=== PATIENT | female | born 1950 | race Caucasian/White ===

== ENCOUNTER 2024-07-06 13:47 | Emergency (ER) | payer MEDICARE, SELFPAY ==
--- NOTE | 2024-07-06 13:53 | ED_ITS ---
Discharge Plan Disposition Patient Disposition: Home, Self-Care Condition: Good Referrals Follow up/Referrals: Provider,Referral, MD [Primary Care Provider] - See instructions Activity Restrictions/Add. Instructions Additional Instructions/Restrictions: Please continue taking Tylenol alternating with Motrin for your chest wall pain. If you have continued new or worsening signs or symptoms follow-up with your PCP or return to the ER as needed. You also need to follow-up with your PCP for lung nodules. Please schedule that appointment tomorrow. Clinical Impressions Clinical Impression: Chest wall pain, Lung nodule Fall Qualifiers: Encounter type: initial encounter Qualified Code(s): W19.XXXA - Unspecified fall, initial encounter Instructions Patient Instructions: Exercises to Help Prevent Falls Print Language Print Language: Kiswahili Discharge ED Provider: Harvinder Cash General Adult HPI <WARREN Mitchell - Last Filed: 07/06/24 15:47> General Chief complaint: PAIN Stated complaint: fall rib pain Time Seen by Provider: 07/06/24 13:53 History of Present Illness HPI narrative: Patient presents for evaluation of right chest wall pain. Patient states that she tripped and fell landing on her right side. She believes she landed on a dog toy. Initially she did not have pain but as the day is gone on she has began hurting more more in her right lateral chest wall. She denies any difficulty breathing fever chills hemoptysis hematochezia melena loss of consciousness striking her head etc. She denies any other injury or pain. Related Data Allergies Allergy/AdvReac Type Severity Reaction Status Date / Time Penicillins Allergy Unknown Verified 07/06/24 14:12 allergy reaction [facility] <WARREN Mitchell - Last Filed: 07/06/24 15:47> [facility] Disclaimer: The information contained in this section may have been updated after the patient was seen, as this information can be updated by other users. Social History (Updated 07/06/24 @ 15:47 by WARREN Mitchell) Smoking Status: Former smoker alcohol intake: never current occupational status: retired Travel in the last 8 weeks: None Have you lived/traveled outside US in past 30 days?: No Contact w/someone who lives/traveled outside US past 30 days?: No Exposure to someone with infectious disease in past 14 days?: No Do you have a fever (greater than 100.4 F or 38 C)?: No Have you tested positive for COVID-19: No Exposed to someone with COVID-19 in past 14 days?: No Do you have a sore throat?: No Do you have a cough?: No Do you have any weakness?: No Do you have any diarrhea?: No Are you experiencing any unusual bleeding?: No Do you have any muscle aches/pain?: No Do you have any abdominal pain?: No Are you experiencing loss of taste or smell?: No <WARREN Mitchell - Last Filed: 07/06/24 15:47> ROS Obtained: Yes Systems reviewed as appropriate & no additional complaints except as documented Physical Exam <WARREN Mitchell - Last Filed: 07/06/24 15:47> General General appearance: alert and in no apparent distress Respiratory Respiratory exam: Present normal lung sounds bilaterally Cardiovascular Cardiovascular exam: Present regular rate Neurological Exam Neurological exam: Present alert and oriented X3 Medical Decision Making <WARREN Mitchell - Last Filed: 07/06/24 15:47> Medical Records Medical records reviewed: Yes I reviewed the patient's medical records. Screening: Per USPSTF and CDC recommendations, given the prevalence of disease in our region, it is our hospital?s policy to screen for HIV and viral Hepatitis for all patients aged 18 and over and those with ongoing risk factors. [place] Inquiry Pt receiving controlled substance: No Vital Signs: 07/06/24 13:56 07/06/24 14:00 07/06/24 14:00 Temperature 100.2 F H Temperature Source Oral Pulse Rate 105 H 107 H Pulse Rate [Left Radial] 104 H Respiratory Rate 19 15 27 H Blood Pressure 127/77 139/88 Blood Pressure [Right Arm] 163/98 H Blood Pressure Mean Blood Pressure Mean [Right Arm] 119 Blood Pressure Source Blood Pressure Position 02 Sat by Pulse Oximetry 97 96 96 Oxygen Delivery Method Room Air Nasal Cannula Room Air Oxygen Flow Rate (LPM) 2 07/06/24 14:30 07/06/24 15:00 07/06/24 15:30 Temperature Temperature Source Pulse Rate 98 H 85 85 Pulse Rate [Left Radial] Respiratory Rate 24 16 Blood Pressure 133/82 141/67 H 137/73 Blood Pressure [Right Arm] Blood Pressure Mean 91 Blood Pressure Mean [Right Arm] Blood Pressure Source Blood Pressure Position 02 Sat by Pulse Oximetry 95 96 96 Oxygen Delivery Method Room Air Room Air Room Air Oxygen Flow Rate (LPM) 07/06/24 16:01 Temperature 98.5 F Temperature Source Oral Pulse Rate 89 Pulse Rate [Left Radial] Respiratory Rate 20 Blood Pressure 137/73 Blood Pressure [Right Arm] Blood Pressure Mean Blood Pressure Mean [Right Arm] Blood Pressure Source Automatic Cuff Blood Pressure Position Sitting 02 Sat by Pulse Oximetry Oxygen Delivery Method Room Air Oxygen Flow Rate (LPM) Lab Data Lab results reviewed: Yes I reviewed the patient's lab results. Orders (Tests/Meds): ED MEDICATIONS Discontinued Medications Generic Name Dose Route Start Last Admin Trade Name Freq PRN Reason Stop Dose Admin Acetaminophen 1,000 mg 07/06/24 14:27 07/06/24 14:32 Acetaminophen 500mg Tab PO 07/06/24 14:28 1,000 mg ONCE ONE Administration Oxycodone HCl 5 mg 07/06/24 14:27 07/06/24 14:32 Oxycodone 5mg Immediate Release Tablet PO 07/06/24 14:28 5 mg ONCE ONE Administration ORDERS Category Date Time Status CT cervical spine wo con Stat Cat Scan 07/06/24 14:[address] chest wo con Stat Cat Scan 07/06/24 14:[address] head/brain wo con Stat Cat Scan 07/06/24 14:26 Completed Medical Decision Narrative: In summary patient is a 73-year-old female who presents to the emergency department for evaluation of fall and right chest wall pain. Patient is hemodynamically stable upon arrival, febrile. Physical exam is remarkable for tenderness to palpation in the right anterior lateral ribs but there is no stigmata of bruising bony deformity abrasions ecchymosis. Breath sounds are cur rently equal bilaterally to the bases. Patient has good chest wall expansion. She has no cervical spine tenderness she has no dorsal spine tenderness [place] Coma Score is 15 and she is awake alert and oriented person place and circumstance. Abdomen soft nontender no rebound or guarding or rigidity. Patient has full range of motion of her lower extremities with no focal neurologic deficits.. Differential diagnosis includes chest wall contusion versus rib fracture. Initial workup will be conducted with CT scan of the head C-spine chest. Initial interventions include Tylenol oxycodone. Initial workup reviewed by me and my interpretation of her imaging shows no evidence of acute fracture or acute intrathoracic abnormality. Patient does have bilateral nodularity in her lungs the radiologist recommend follow-up for as an outpatient.. Upon repeat evaluation patient reported significant improvement after initial interventions. Given this patient is appropriate for discharge with follow-up with her PCP for her lung findings as well as for any continued new or worsening signs or symptoms as needed. <Harvinder Cash MD - Last Filed: 07/07/24 12:25> Vital Signs: 07/06/24 13:56 07/06/24 14:00 07/06/24 14:00 Temperature 100.2 F H Temperature Source Oral Pulse Rate 105 H 107 H Pulse Rate [Left Radial] 104 H Respiratory Rate 19 15 27 H Blood Pressure 127/77 139/88 Blood Pressure [Right Arm] 163/98 H Blood Pressure Mean Blood Pressure Mean [Right Arm] 119 Blood Pressure Source Blood Pressure Position 02 Sat by Pulse Oximetry 97 96 96 Oxygen Delivery Method Room Air Nasal Cannula Room Air Oxygen Flow Rate (LPM) 2 07/06/24 14:30 07/06/24 15:00 07/06/24 15:30 Temperature Temperature Source Pulse Rate 98 H 85 85 Pulse Rate [Left Radial] Respiratory Rate 24 16 Blood Pressure 133/82 141/67 H 137/73 Blood Pressure [Right Arm] Blood Pressure Mean 91 Blood Pressure Mean [Right Arm] Blood Pressure Source Blood Pressure Position 02 Sat by Pulse Oximetry 95 96 96 Oxygen Delivery Method Room Air Room Air Room Air Oxygen Flow Rate (LPM) 07/06/24 16:01 Temperature 98.5 F Temperature Source Oral Pulse Rate 89 Pulse Rate [Left Radial] Respiratory Rate 20 Blood Pressure 137/73 Blood Pressure [Right Arm] Blood Pressure Mean Blood Pressure Mean [Right Arm] Blood Pressure Source Automatic Cuff Blood Pressure Position Sitting 02 Sat by Pulse Oximetry Oxygen Delivery Method Room Air Oxygen Flow Rate (LPM) Orders (Tests/Meds): ED MEDICATIONS Discontinued Medications Generic Name Dose Route Start Last Admin Trade Name Freq PRN Reason Stop Dose Admin Acetaminophen 1,000 mg 07/06/24 14:27 07/06/24 14:32 Acetaminophen 500mg Tab PO 07/06/24 14:28 1,000 mg ONCE ONE Administration Oxycodone HCl 5 mg 07/06/24 14:27 07/06/24 14:32 Oxycodone 5mg Immediate Release Tablet PO 07/06/24 14:28 5 mg ONCE ONE Administration ORDERS Category Date Time Status CT cervical spine wo con Stat Cat Scan 07/06/24 14:[address] chest wo con Stat Cat Scan 07/06/24 14:[address] head/brain wo con Stat Cat Scan 07/06/24 14:26 Completed Medical Decision Narrative: In summary patient is a 73-year-old female who presents to the emergency department for evaluation of fall and right chest wall pain. Patient is hemodynamically stable upon arrival, febrile. Physical exam is remarkable for tenderness to palpation in the right anterior lateral ribs but there is no stigmata of bruising bony deformity abrasions ecchymosis. Breath sounds are currently equal bilaterally to the bases. Patient has good chest wall expansion. She has no cervical spine tenderness she has no dorsal spine tenderness [place] [facility] Coma Score is 15 and she is awake alert and oriented person place and circumstance. Abdomen soft nontender no rebound or guarding or rigidity. Patient has full range of motion of her lower extremities with no focal neurologic deficits.. Differential diagnosis includes chest wall contusion versus rib fracture. Initial workup will be conducted with CT scan of the head C-spine chest. Initial interventions include Tylenol oxycodone. Initial workup reviewed by me and my interpretation of her imaging shows no evidence of acute fracture or acute intrathoracic abnormality. Patient does have bilateral nodularity in her lungs the radiologist recommend follow-up for as an outpatient.. Upon repeat evaluation patient reported significant improvement after initial interventions. Given this patient is appropriate for discharge with follow-up with her PCP for her lung findings as well as for any continued new or worsening signs or symptoms as needed. I was consulted by the OTTO, and we discussed the complexity of the problems being addressed. I approve the treatment and management plan for this patient's care in the emergency department, thus performing a substantive portion of the medical decision making. Harvinder Cash MD Critical Care <WARREN Mitchell - Last Filed: 07/06/24 15:47> Critical Care Time Critical Care Time: No
[2024-07-06 13:56] VITALS: BP 127/77; PULSE 105; RESP 19; O2SAT 97
[2024-07-06 14:00] VITALS: BP 139/88; BP 163/98; PULSE 104; PULSE 107; RESP 15; RESP 27; TEMP 37.9; O2SAT 96; BMI 32.5
--- NOTE | 2024-07-06 14:08 | PC.NURSE ---
[facility] pool at [facility] talking with pt
--- NOTE | 2024-07-06 14:26 | CT_ITS ---
FINAL REPORT TECHNIQUE: Noncontrast exam This study was performed with techniques to keep radiation doses as low as reasonably achievable, (ALARA). Individualized dose reduction techniques using automated exposure control or adjustment of mA and/or kV according to the patient''s size were employed. CLINICAL HISTORY: Fall FINDINGS: No abnormal density is seen. Ventricles are normal. There is no hemorrhage. No mass effect is seen. Bone windows show no evidence of fracture. 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 There is moderate generalized atrophy. Incidental note is made of pansinusitis with sparing of the frontal sinus. IMPRESSION: No acute intracranial abnormality. Pansinusitis. Reviewed, Interpreted and Dictated by Katherine Teixeria MD Transcribed by Anais Chand Authenticated and [facility]
--- NOTE | 2024-07-06 14:26 | CT_ITS ---
FINAL REPORT TECHNIQUE: Axial CT without IV contrast administration. This study was performed with techniques to keep radiation doses as low as reasonably achievable, (ALARA). Individualized dose reduction techniques using automated exposure control or adjustment of mA and/or kV according to the patient''s size were employed. CLINICAL HISTORY: Fall, right chest wall pain FINDINGS: There is nodular at the right lung base, most evident within the right middle lobe. Largest area seen on image 47 measures 22 x 14 mm. There are patchy peripheral opacities in the right lung and to a lesser extent in the left lung. There is no evidence of pulmonary contusion. There is no adenopathy or effusion. A moderate size hiatal hernia seen. There is no pneumothorax. No rib fracture is identified. IMPRESSION: Abnormal appearance of the lung parenchyma, particularly in the right lung with nodularity which could be infectious or inflammatory. Recommend 3-month follow-up chest CT, ideally with intravenous contrast. No evidence of pulmonary contusion. Reviewed, Interpreted and Dictated by Katherine Teixeira MD Transcribed by Anais Chand Authenticated and [facility]
--- NOTE | 2024-07-06 14:26 | CT_ITS ---
FINAL REPORT TECHNIQUE: Thin section axial CT with sagittal reconstruction without contrast This study was performed with techniques to keep radiation doses as low as reasonably achievable, (ALARA). Individualized dose reduction techniques using automated exposure control or adjustment of mA and/or kV according to the patient''s size were employed. CLINICAL HISTORY: Fall FINDINGS: There is moderate diffuse degenerative disc disease and facet arthropathy. There is no acute bony abnormality. No obvious bony spinal canal stenosis is present. No gross disk abnormalities are seen. IMPRESSION: No fracture or malalignment Reviewed, Interpreted and Dictated by Katherine Teixeira MD Transcribed by Anais Chand Authenticated and [facility]
[2024-07-06 14:30] VITALS: BP 133/82; PULSE 98; RESP 24; O2SAT 95
--- NOTE | 2024-07-06 14:31 | PC.NURSE ---
pt to CT via stretcher with [employer].
[2024-07-06] MEDS: ACETAMINOPHEN 500MG TAB 1000 MG PO (14:32)
[2024-07-06] MEDS: OXYCODONE 5MG IMMEDIATE RELEASE TABLET 5 MG PO (14:32)
--- NOTE | 2024-07-06 14:46 | PC.NURSE ---
pt returned from CT
[2024-07-06 15:00] VITALS: BP 141/67; PULSE 85; O2SAT 96
[2024-07-06 15:30] VITALS: BP 137/73; PULSE 85; RESP 16; O2SAT 96
[2024-07-06 16:01] VITALS: BP 137/73; PULSE 89; RESP 20; TEMP 36.9
--- NOTE | 2024-07-09 11:24 | PC.NURSE ---
Faxed face-sheet to [facility]
== END 2024-07-06 16:03 | disposition home or self-care (01) ==
PROVIDERS: Emergency Provider Student in an Organized Health Care Education/Training Program
DX: R07.89 Other chest pain (principal); R91.1 Solitary pulmonary nodule; W18.30XA Fall on same level, unspecified, initial encounter; Y93.89 Activity, other specified; Y92.009 Unspecified place in unspecified non-institutional (private) residence as the place of occurrence of the external cause
CPT/HCPCS: 70450; 71250; 72125; 99284

== ENCOUNTER 2025-03-04 04:24 | Inpatient (IN) | payer MEDICARE, SELFPAY ==
[2025-03-04] VITALS (16 sets, daily range): BP systolic 106–179; BP diastolic 58–100; PULSE 77–110; RESP 12–21; TEMP 36.6–37.7; O2SAT 86–99; BMI 32.1; BMI 35.4
--- NOTE | 2025-03-04 04:28 | [facility].EDGENADL ---
Discharge Plan Disposition Patient Disposition: Admitted Clinical Impressions Clinical Impression: Community acquired pneumonia, Acute exacerbation of chronic obstructive airways disease, Respiratory failure with hypoxia and hypercapnia Print Language Print Language: Maltese Discharge ED Provider: London Reinoso General Adult HPI General Chief complaint: Shortness of Breath/Dyspnea Stated complaint: Respiratory Distress Time Seen by Provider: 03/04/25 04:28 History of Present Illness HPI narrative: 75-year-old female with history of hypertension, prior [place], COPD, on 3 L at home intermittently as needed. She reports that she has been feeling well and that all the sudden was hit with significant shortness of breath. EMS reports that she was satting in the 60s and was borderline obtunded on their arrival. She was placed on a nonrebreather and given a DuoNeb with improvement. She arrives on 6 L nasal cannula and is still a bit groggy. Related Data Allergies Allergy/AdvReac Type Severity Reaction Status Date / Time Penicillins Allergy Unknown Verified 07/06/24 14:12 [facility] Disclaimer: The information contained in this section may have been updated after the patient was seen, as this information can be updated by other users. Social History (Updated 07/06/24 @ 15:47 by WARREN Mitchell) Smoking Status: Never smoker alcohol intake: never current occupational status: retired Travel in the last 8 weeks?: None ROS Obtained: Yes All systems reviewed & no additional complaints except as documented Physical Exam General General appearance: alert Head Head exam: atraumatic and normocephalic Eye Eye exam: Present normal appearance, PERRL and EOMI ENT ENT exam: Present normal oropharynx and normal external ear exam Neck Neck exam: Present normal inspection and full ROM Chest Chest inspection: Present normal inspection and symmetric chest wall rise; Absent tenderness Respiratory Respiratory exam: Present respiratory distress, wheezes and prolonged expiratory phase Cardiovascular Cardiovascular exam: Present normal rhythm and tachycardia Abdominal Exam Abdominal exam: Present soft; Absent distention, tenderness or guarding Extremities Exam Extremities exam: Present normal inspection; Absent edema or joint swelling Back Exam Back exam: Present normal inspection; Absent tenderness Neurological Exam Neurological exam: Present alert and oriented X3; Absent motor sensory deficit Psychiatric Psychiatric exam: Present normal affect and normal mood Skin Skin exam: Present warm, dry and normal color Lymphatic Lymphatic Findings: no adenopathy Medical Decision Making Medical Records Medical records reviewed: Yes I reviewed the patient's medical records. Screening: Per USPSTF and CDC recommendations, given the prevalence of disease in our region, it is our hospital?s policy to screen for HIV and viral Hepatitis for all patients aged 18 and over and those with ongoing risk factors. [place] Inquiry Pt receiving controlled substance: No [place] was queried for this patient: No Vital Signs: 03/04/25 04:30 03/04/25 05:00 03/04/25 05:30 Temperature 99.9 F H Temperature Source Oral Pulse Rate 99 H 101 H Pulse Rate [Radial] 110 H Respiratory Rate 20 17 17 Blood Pressure 131/71 141/78 H Blood Pressure [Right Arm] 136/73 Blood Pressure Mean [Right Arm] 94 Blood Pressure Position [Right Arm] Supine 02 Sat by Pulse Oximetry 98 99 94 L Oxygen Delivery Method Nasal Cannula Nasal Cannula Nasal Cannula Oxygen Flow Rate (LPM) 6 6 3 03/04/25 06:00 03/04/25 06:10 Temperature Temperature Source Pulse Rate 91 H Pulse Rate [Radial] Respiratory Rate 16 Blood Pressure 106/58 L Blood Pressure [Right Arm] Blood Pressure Mean [Right Arm] Blood Pressure Position [Right Arm] 02 Sat by Pulse Oximetry 94 L 87 L Oxygen Delivery Method Nasal Cannula Nasal Cannula Oxygen Flow Rate (LPM) 2 1 Lab Data Lab results reviewed: Yes I reviewed the patient's lab results. Lab Results 03/04/25 04:30: WBC 22.4 H*, RBC 4.09 L, Hgb 9.3 L, Hct 33.5 L, MCV 81.9, MCH 22.7 L, MCHC 27.8 L, RDW 18.5 H, Plt Count 246, MPV 8.7, Neut % (Auto) 85.4 H, Lymph % (Auto) 1.5 L, [place] % (Auto) 10.9 H, Eos % (Auto) 0.2, Baso % (Auto) 0.4, Neut # (Auto) 19.1 H, Lymph # (Auto) 0.3 L, [place] # (Auto) 2.4 H, Eos # (Auto) 0.1, Baso # (Auto) 0.1, Total Counted 100, Neutrophils % (Manual) 91 H, Lymphocytes % (Manual) 7 L, Eosinophils % (Manual) 1, Basophils % (Manual) 1.0, Platelet Estimate Normal, Stomatocytes 1+, PT 11.1, INR 1.00, VBG pH 7.32, VBG pCO2 61.9 H, VBG pO2 62.9 H, VBG HCO3 31.1 H, VBG Total CO2 33.0 H, VBG O2 Saturation 91.8 H, VBG Base Excess 5.0 H, VBG Lactic Acid 1.8, Sodium 134 L, Potassium 4.1, Chloride 98, Carbon Dioxide 34 H, Anion Gap 6.1, BUN 15, Creatinine 1.00, Estimated Creat Clear 61, Estimated GFR 54 L, Est GFR ( Amer) 66, Glucose 127 H, Calcium 8.4, Magnesium 1.6, Total Bilirubin 1.0, AST 39 H, ALT 16, Alkaline Phosphatase 90, Troponin I < 0.01, NT-Pro-B Natriuret Pep 3160 H, Total Protein 6.3, Albumin 3.4 L, Globulin 2.9, Albumin/Globulin Ratio 1.2, HCV Ab NANCY w/Rflx PCR Qn Negative, HIV Ag/Ab Combo Qual Negative 03/04/25 04:30 03/04/25 04:30 Orders (Tests/Meds): ED MEDICATIONS Generic Name Dose Route Start Last Admin Trade Name Freq PRN Reason Stop Dose Admin Levofloxacin/Dextrose 750 mg in 150 mls @ 100 mls/hr 03/04/25 05:30 03/04/25 05:21 Levofloxacin 750mg/150ml Premix IV 03/14/25 05:29 100 mls/hr Q24H TYLER Administration Oxycodone HCl 5 mg 03/04/25 06:29 Oxycodone 5mg Immediate Release Tablet PO 03/04/25 06:30 ONCE ONE Discontinued Medications Generic Name Dose Route Start Last Admin Trade Name Freq PRN Reason Stop Dose Admin Albuterol/Ipratropium 6 ml 03/04/25 04:28 03/04/25 04:46 Ipratropium/Albuterol 3 Ml Neb IH 03/04/25 04:29 6 ml ONCE ONE Administration Magnesium Sulfate 2 gm in 50 mls @ 150 mls/hr 03/04/25 04:28 03/04/25 05:12 Magnesium Sulfate 2gm/50ml Premix IV 03/04/25 04:47 Infused ONCE ONE Infusion Methylprednisolone Sodium Succinate 125 mg 03/04/25 04:28 03/04/25 04:48 Methylprednisolone Sod Succ 125mg Vial IV 03/04/25 04:29 125 mg ONCE ONE Administration ORDERS Category Date Time Status CXR --portable [XR chest portable] Stat Exams 03/04/25 04:29 Completed BNP [NT Pro Brain Natriuretic Pep.] Stat Lab 03/04/25 04:30 Completed CBC w/Auto Diff [Complete Blood Count Auto Diff] Stat Lab 03/04/25 04:30 Completed CMP [Comprehensive Metabolic Panel] Stat Lab 03/04/25 04:30 Completed Full Resp Panel w/COVID ([facility]) Routine Lab 03/04/25 04:45 Received HIV Combo Stat Lab 03/04/25 04:30 Completed Hepatitis C Ab Qual. W/ RFX Stat Lab 03/04/25 04:30 Completed INR [Prothrombin Time INR] Stat Lab 03/04/25 04:30 Completed Magnesium Stat Lab 03/04/25 04:30 Completed Rapid PCR Covid and Flu A/B Stat Lab 03/04/25 04:45 Ordered Troponin I Q3H Lab 03/04/25 04:30 Completed Troponin I Q3H Lab 03/04/25 07:30 Ordered Blood Culture Stat Micro 03/04/25 05:05 Received VBG [Venous Blood Gas] Stat RT 03/04/25 04:30 Completed Tissue Perfus/Sepsis Re-Eval Sepsis Re-Evaluation Performed: Yes Date Performed: 03/04/25 Time Performed: 06:33 HEART Score History (anamnesis): Slightly suspicious ECG: Normal Age: >65 years Risk factors: Atherosclerosis history Troponin: </= normal limit HEART Score: 4 Medical Decision Narrative: 74-year-old female with history of COPD on 3 L nasal cannula at home intermittently. History was obtained via interactive discussion with patient, EMS, chart review. On arrival, patient is afebrile but temp 99.9, normotensive, satting mid 90s on 6 L nasal cannula, moving all extremities spontaneously. Full physical exam performed and significant for poor air movement bilaterally with wheezing, prolonged expiratory phase and accessory muscle use. no significant lower extremity edema. Differential includes but is not limited to COPD exacerbation, pneumonia, URI, pneumothorax. Patient was given 1 DuoNeb by EMS, 2 DuoNebs here, 125 Solu-Medrol, 2 g mag, Levaquin for symptomatic management and correction of underlying abnormalities. Workup initiated including CBC CMP VBG EKG troponin chest x-ray. On re-evaluation, patient reports significant symptomatic improvement, satting low 90s on 3 L nasal cannula Laboratory workup independently interpreted by me and significant for low normal pH and mildly elevated pCO2 on VBG. White count moderately elevated at 22.. Imaging independently interpreted by me and significant for possible right infiltrate and pulmonary edema see radiology read for full review of final results. EKG independently interpreted by me and significant for normal sinus rhythm, rate of 99, no significant ST or T wave changes. Interpreted at 0453. Given patient history, exam and workup, patient's presentation most likely represents pneumonia and COPD exacerbation. She was initiated on Levaquin for empiric treatment of pneumonia. We tried to wean her off her oxygen but she dropped into the 80s. Full sepsis bolus is not indicated at this time given concern for pulmonary edema. Interactive discussion was had with the hospitalist on-call for admission for pneumonia acute exacerbation and respiratory failure. Procedures Risk/Benefits of Procedure(s) Were Explained: Yes Critical Care Critical Care Time Critical Care Time: Yes Attestation: On 03/04/25, the high probability of a clinically significant, sudden or life threatening deterioration of the following system(s) required my full and direct attention, intervention and personal management. The time I documented below is in addition to time spent performing reported procedures but includes the following listed in this critical care notation. Total Time Total Critical Care Time: 50
--- NOTE | 2025-03-04 04:29 | XR_ITS ---
PROCEDURE INFORMATION: Exam: XR Chest Exam date and time: 03/04/2025 4:33 AM Age: 74 years old Clinical indication: Shortness of breath; Additional info: Copd, SOA TECHNIQUE: Imaging protocol: Radiologic exam of the chest. Views: 1 view. COMPARISON: CT CHEST WO CON 07/06/2024 2:43 PM FINDINGS: Lungs: Right basilar airspace opacity, atelectasis versus aspiration or infiltrate. Pleural spaces: Unremarkable. No pleural effusion. No pneumothorax. Heart/Mediastinum: Stable cardiomegaly. Bones/joints: Unremarkable. IMPRESSION: Stable cardiomegaly. Right basilar airspace opacity, atelectasis versus aspiration or infiltrate.
[2025-03-04 04:39] LABS: Hematocrit 33.5 % (37.0-47.0); Hemoglobin 9.3 g/dL (12.2-16.2); Immature Granulocytes % 1.6 %; Lactate Venous 1.8 mmol/L (0.4-2.0); Mean Corpuscular HGB Conc 27.8 g/dL (31.8-35.4); Mean Corpuscular Hemoglobin 22.7 pg (27.0-31.2); Mean Corpuscular Volume 81.9 fl (81-99); Nucleated Red Blood Cells % 0 %; Platelet Count 246 K/mm3 (142-424); Red Blood Count 4.09 M/mm3 (4.20-5.40); Red Cell Distribution Width-SD 55.4 fL; VBG HCO3 31.1 mmol/L (23-30); VBG PH 7.32 mmol/L (7.31-7.41); VBG PO2 62.9 mmol/L (28-40); White Blood Count 22.4 K/mm3 (4.8-10.8)
[2025-03-04 04:42] LABS: VBG PCO2 61.9 mmol/L (35-51)
[2025-03-04 04:46] LABS: Albumin Level 3.4 g/dl (3.5-5.0); Chloride 98 mmol/L (98-107); Potassium 4.1 mmoL/L (3.5-5.1); Sodium 134 mmol/L (136-145)
[2025-03-04] MEDS: IPRATROPIUM/ALBUTEROL 3 ML NEB 6 ML IH (04:46)
[2025-03-04] MEDS: MAGNESIUM SULFATE IN WATER 2 GM/50 ML PIGGYBACK IV (04:47)
[2025-03-04] MEDS: METHYLPREDNISOLONE SOD SUCC 125MG VIAL 125 MG IV (04:48)
[2025-03-04 04:49] LABS: Alanine Aminotransferase 16 U/L (12-78); Albumin/Globulin Ratio 1.2 (1.1-1.8); Alkaline Phosphatase 90 U/L (38-126); Anion Gap 6.1 mEq/L (5-15); Aspartate Amino Transferase 39 U/L (14-36); Bilirubin,Total 1.0 mg/dl (0.2-1.3); Blood Urea Nitrogen 15 mg/dl (7-17); Calcium 8.4 mg/dl (8.4-10.2); Carbon Dioxide 34 mmol/L (22.0-30.0); Creatinine Clearance Estimated 61 mL/min (50-200); Creatinine,Serum 1.00 mg/dl (0.52-1.04); Estimated Glomerular Filt Rate 54 ml/min (>60); GFR (African American) 66 ML/MIN (>60); Globulin 2.9 g/dL (1.3-3.2); Glucose 127 mg/dl (74-100); Total Protein,Serum 6.3 g/dl (6.3-8.2)
[2025-03-04 04:49] LABS: Adenovirus,PCR Not Detected (NotDetected); Chlamydophila Pneumoniae, PCR Not Detected (NotDetected); Coronavirus 19, PCR Not Detected (NotDetected); Coronovirus HKU1,PCR Not Detected (NotDetected); Influenza A, PCR Not Detected (NotDetected); Influenza AH1, 2009 Not Detected (NotDetected); Influenza AH1, PCR Not Detected (NotDetected); Influenza AH3,PCR Not Detected (NotDetected); Influenza B, PCR Not Detected (NotDetected); Mycoplasma Pneumoniae, PCR Not Detected (NotDetected); Parainfluenza 1, PCR Not Detected (NotDetected); Parainfluenza 2, PCR Not Detected (NotDetected); Parainfluenza 3, PCR Not Detected (NotDetected); Parainfluenza 4, PCR Not Detected (NotDetected)
[2025-03-04 04:50] LABS: INR 1.00 (0.9-1.1); Magnesium 1.6 mg/dl (1.6-2.3); Prothrombin Time 11.1 seconds (10.1-12.5)
--- NOTE | 2025-03-04 04:53 | ECG_ITS ---
APPROVED REPORT Exam: Resting ECG HR:99 bpm ECG Measurements Heart Rate 99 AXES NM 150 P 56 QRSd 94 QRS 2 QT 338 T 22 QTc 394 Conclusion SINUS RHYTHM NORMAL ECG UNCONFIRMED REPORT Electronically signed by : VAIBHAV CHACON, 03/08/2025 06:26:19
[2025-03-04 04:59] LABS: NT Pro Brain Natriuretic Pep. 3160 pg/mL (0-125)
[2025-03-04 05:05] LABS: Troponin I < 0.01 ng/ml (0.00-0.034)
[2025-03-04 05:07] LABS: Total Cells Counted 100
[2025-03-04 05:09] LABS: Stomatocytes 1+
--- OUTSIDE RECORDS SUMMARY | 2025-03-04 05:09 | XMS_ITS | Clinical Summary ---
Author Organization [facility] Address [address] [place] [address] Phone Care Team Providers Care Transitional Living Specialist Name Role Phone Viv CORONADO, Gamaliel Munoz [phone] Conditions or Problems Problem Name Problem Code Onset Date Status Entry Date Provider Comment Standard Description Annotate AFTERCARE FOLLOWING SURGERY OF THE NERVOUS SYSTEM, NEC 940648857 (SNOMED CT) 12/24 Active 12/24 Clemente Pryor ARCHAEOLOGY PROFESSOR Surgical follow-up OVERWEIGHT [id number] (SNOMED CT) 12/24 Active 12/24 Clemente Pryor ARCHAEOLOGY PROFESSOR Overweight BACK PAIN, LUMBAR, WITH RADICULOPATHY 558716979 (SNOMED CT) 12/09 Active 12/16 Adamarisdelilah Nopohl Lumbar radiculopathy PREOP EXAM [id number] (SNOMED CT) 11/16 Active 11/16 Rachael Patel Pre-surgery evaluation BACK PAIN, LUMBAR 610734374 (SNOMED CT) Active Tyrell Echavarria MD Low back pain Medications Medication Instructions Start Date Stop Date Generic Name [facility] Provider CYCLOBENZAPRINE HCL 10 MG TABS Take 1 tab TID 12/08 CYCLOBENZAPRINE HCL 74888630771 Gamaliel Nam MD OXYCODONE HCL 5 MG TABS 1 to 2 every 4-6 hours as needed for pain 12/08 OXYCODONE HCL [id number] Gamaliel Nam MD HIBICLENS 4 % EXTERNAL LIQUID wash with half solution 2 nights prior to surgery. Wash with half solution night prior to surgery 11/16 CHLORHEXIDINE GLUCONATE [id number] Gamaliel Nam MD CELEBREX CAPS Non-[place] 11/16 CELECOXIB CAPS [id number] Rachael Patel VITAMIN D3 CAPS Non-11/16 CHOLECALCIFEROL CAPS [id number] Rachael Patel POTASSIUM CHLORIDE JUSTINO ER CR-TABS 11/16 POTASSIUM CHLORIDE JUSTINO ER CR-TABS [id number] Rachael Patel FUROSEMIDE TABS 11/16 FUROSEMIDE TABS [id number] Rachael Patel HYDROCHLOROTHIAZIDE CAPS 11/16 HYDROCHLOROTHIAZIDE CAPS [id number] Rachael Patel SYNTHROID TABS 11/16 LEVOTHYROXINE SODIUM TABS [id number] Rachael Patel GABAPENTIN 300 MG/6ML SOLN 11/16 GABAPENTIN 77677645386 Rachael Patel VENTOLIN HFA 108 (90 Base) MCG/ACT AERS 11/16 ALBUTEROL SULFATE [id number] Rachael Patel TRELEGY ELLIPTA 100-62.5-25 MCG/ACT AEPB 11/16 FLUTICASONE-UMECLID IN-VILANT [id number] Rachael Patel PROAIR HFA 108 (90 BASE) MCG/ACT INHALATION AEROSOL SOLUTION 11/16 ALBUTEROL SULFATE [id number] Rachael Patel IBUPROFEN TABS 11/16 IBUPROFEN TABS [id number] Rachael Patel CLINDAMYCIN HCL 300 MG CAPS 11/16 CLINDAMYCIN HCL 76865989392 Rachael Patel NORCO TABLET 11/16 HYDROCODONE-ACETAMI NOPHEN TABS 40296339335 Rachael Patel METHOCARBAMOL 750 MG TABS -11/16 METHOCARBAMOL [id number] Rachael Patel PROAIR HFA AEROSOL SOLUTION -11/16 ALBUTEROL SULFATE AERS [id number] Rachael Patel VICODIN 5-500 MG TABS -11/16 HYDROCODONE-ACETAMI NOPHEN 59735380941 Rachael Patel SYNTHROID 75 MCG TABS -11/16 LEVOTHYROXINE SODIUM 58134353370 Rachael Patel METHOCARBAMOL 750 MG TABS -Jenkins 11/16 METHOCARBAMOL [id number] Tyrell Echavarria MD PROAIR HFA AEROSOL SOLUTION -11/16 ALBUTEROL SULFATE AERS [id number] Tyrell Echavarria MD VICODIN 5-500 MG TABS -11/16 HYDROCODONE-ACETAMI NOPHEN [id number] Tyrell Echavarria MD SYNTHROID 75 MCG TABS -11/16 LEVOTHYROXINE SODIUM [id number] Tyrell Echavarria MD Medications Administered No information available. Allergies, Adverse Reactions, Alerts Allergy Name Reaction Description Start Date Severity Statu s Provider PCN swelling Critical Tyrell Echavarria MD Results Date Name Value Unit Range Flag Description Lab Report: CBC MCV 79.0 fL 82.5-99.8 L MCV [Entiti c volume] by Automated count HCT 37.7 % 35.7-45.9 Hematocrit [Volume Fraction] of Blood by Automated count HGB 12.0 g/dL 12.0-15.6 Hemoglobin [Mass/volume] in Blood WBC COUNT 8.9 10*3/uL 4.0-11.0 leukocyte count, blood Plan of Care Type Date Detail Pending order MRI Thoracic wit hout contrast Pending order MRI Thoracic wit hout contrast Pending order CBC Pending order Renal function p zuly with BUN Pending order EKG Pending order Nasal Culture to Rule out staph aureus Procedures No information available. Vital Signs Date Name Value Unit Description BMI (Body Mass Index) 39.06 kg/m2 Bod y Mass Index (Ratio) Height 60 [in_us] height E&M Weight Measured 200 [lb_av] weight E& M Weight Measured 200 [lb_av] weight E& M BP Diastolic 85 mm[Hg] blood pressu re, diastolic BP Systolic 143 mm[Hg] blood pressur e, systolic Body Temperature 98.1 [degF] temperat ure E&M Heart Rate 90 /min pulse rate Respiratory Rate 18 /min respirat ory rate E&M Immunizations No information available. Advance Directives No information available.
--- NOTE | 2025-03-04 05:14 | PC.NURSE ---
nasal cannula turned down to 3L for OBS prior to admission decision
[2025-03-04] MEDS: LEVOFLOXACIN/D5W 750 MG/150 ML 750 MG/150 ML PIGGYBACK 100 MG IV (05:21)
[2025-03-04 05:39] LABS: Hepatitis C Ab Qual. W/ RFX NEGATIVE (Negative)
--- NOTE | 2025-03-04 06:24 | PC.NURSE ---
ed provider at the bedside
[2025-03-04] MEDS: OXYCODONE 5MG IMMEDIATE RELEASE TABLET 5 MG PO (06:33)
--- NOTE | 2025-03-04 06:47 | PC.NURSE ---
Attempt to give report for patient admission, Charge request to wait till aft shift change
--- NOTE | 2025-03-04 06:54 | P.HP_ITS ---
<Statement entered by Curtis Ireland MD - 03/04/25 18:57> Rounded on patient after nurse practitioner. Personally examined and interviewed patient. Agree with exam findings and care plan as documented. Patient had concern for aspiration pneumonia given recurrent pneumonia and right lower lung field. CT obtained showing consolidation and patchy airspace disease. Speech evaluated, no concern for aspiration on bedside eval. Continue monotherapy with Levaquin. Repeat CBC, CMP, magnesium ordered for the morning. Wean oxygen as tolerated. Currently on 3 L oxygen. Morning labs with white count of 22.4. Kidney function stable with BUN 15, creatinine 1.0. Concern for CHF component. Echo obtained, formal read still pending but appears to have elevated RVSP in the 40s. Diuresed with Lasix IV 40 mg once given BNP of 3100. Monitor for response with negative volume status. - PSI port score of 93. Necessitating inpatient care. - Therapy evaluated, recommend discharge with home health when medically stable History of Present Illness *Admission Date: 03/04/25 *Reason for visit:: Shortness of breath *History of present illness: HCO3 31.1,This is a 74-year-old female who has a past medical history significant for COPD, asthma, bronchitis, ID, (has no cardiac stents), hypothyroidism, and home O2 at 2-3 L who presents with a chief complaint of shortness of air. Due to patient's symptoms, EMS presented to patient's home residence where she was noted to have oxygen saturations on her home O2 regimen of 60%. Per EMS, patient was obtunded. She was transition to [facility] and given multiple nebulized treatments. Plain films of the chest revealed stable cardiomegaly and right basilar airspace opacity atelectasis versus aspiration or infiltrate. As a result, patient is being admitted for further management. During my evaluation of the patient, patient states that her symptoms started approximately 1-2 days ago and progressively got worse. Patient states she has had a nonproductive cough and wheezing noted. Family member noted that patient started to become lethargic and that is the reason why they called EMS. On further questioning, patient states she uses Trelegy inhaler and albuterol. Spouse and patient voices purchasing a commercial oxygen device that is portable. They do not believe that device is adequate for her. They would like to see if patient qualifies for supplemental oxygen upon discharge. Patient states she had a home nebulizer in the past but did not like the device and no longer uses it. She is currently denying any chest pain, lightheadedness, hematochezia, hematemesis, hematuria, melena stool, dizziness, fever, chills, rigors, nausea, vomiting, or diarrhea. Patient states she cannot tolerate laying flat. Additional pertinent vitals obtained including white blood cell count of 22.4, red blood cell count of 4.09, hemoglobin 9.3, hematocrit 33.5, neutrophils 85.4%, pCO2 61.9, sodium 134, carbon oxide 34, GFR 54, blood glucose 127, AST of 39, and BNP of 3160. [facility] Disclaimer: The information contained in this section may have been updated after the patient was seen, as this information can be updated by other users. Social History (Updated 07/06/24 @ 15:47 by WARREN Mitchell) Smoking Status: Never smoker alcohol intake: never current occupational status: retired Travel in the last 8 weeks?: None Review of Systems Review of Systems Review of systems:: pertinent systems reviewed and negative unless documented below Constitutional Constitutional: Reports system reviewed and no additional complaints, except as documented Eyes Eyes: Reports system reviewed and no additional complaints, except as documented ENT Ears, Nose, Mouth, and Throat: Reports system reviewed and no additional complaints, except as documented *Cardiovascular Cardiovascular: Reports system reviewed and no additional complaints, except as documented, Reports dyspnea and Reports dyspnea on exertion *Respiratory Respiratory: Reports cough, Reports dyspnea and Reports dyspnea on exertion *Gastrointestinal Gastrointestinal: Reports system reviewed and no additional complaints, except as documented *Genitourinary Genitourinary: Reports system reviewed and no additional complaints, except as documented *Musculoskeletal Musculoskeletal: Reports system reviewed and no additional complaints, except as documented Integumentary/Breasts Skin/Breast: Reports system reviewed and no additional complaints, except as documented *Neurologic Neurologic: Reports system reviewed and no additional complaints, except as documented Psychiatric Psychiatric: Reports system reviewed and no additional complaints, except as documented Endocrine Endocrine: Reports system reviewed and no additional complaints, except as documented Hematologic/Lymphatic Hematologic/Lymphatic: Reports system reviewed and no additional complaints, except as documented Allergic/Immunologic Allergic/Immunologic: Reports system reviewed and no additional complaints, except as documented Meds Home Medications and Allergies New Prescriptions to Start Prescriptions: Allergies Allergy/AdvReac Type Severity Reaction Status Date / Time Penicillins Allergy Unknown Verified 07/06/24 14:12 allergy reaction Exam Data for Last 24 hours Vital signs and Labs for Last 24 Hours: Temp Pulse Resp BP Pulse Ox O2 Del Method O2 Flow Rate 99.9 F H 98 H 16 134/87 94 L Nasal Cannula 2 03/04/25 04:30 03/04/25 06:30 03/04/25 06:30 03/04/25 06:30 03/04/25 06:30 03/04/25 06:30 03/04/25 06:30 Laboratory Results - last 24 hr 03/04/25 04:30: WBC 22.4 H*, RBC 4.09 L, Hgb 9.3 L, Hct 33.5 L, MCV 81.9, MCH 22.7 L, MCHC 27.8 L, RDW 18.5 H, Plt Count 246, MPV 8.7, Neut % (Auto) 85.4 H, Lymph % (Auto) 1.5 L, [place] % (Auto) 10.9 H, Eos % (Auto) 0.2, Baso % (Auto) 0.4, Neut # (Auto) 19.1 H, Lymph # (Auto) 0.3 L, [place] # (Auto) 2.4 H, Eos # (Auto) 0.1, Baso # (Auto) 0.1, Total Counted 100, Neutrophils % (Manual) 91 H, Lymphocytes % (Manual) 7 L, Eosinophils % (Manual) 1, Basophils % (Manual) 1.0, Platelet Estimate Normal, Stomatocytes 1+, PT 11.1, INR 1.00, VBG pH 7.32, VBG pCO2 61.9 H, VBG pO2 62.9 H, VBG HCO3 31.1 H, VBG Total CO2 33.0 H, VBG O2 Saturation 91.8 H, VBG Base Excess 5.0 H, VBG Lactic Acid 1.8, Sodium 134 L, Potassium 4.1, Chloride 98, Carbon Dioxide 34 H, Anion Gap 6.1, BUN 15, Creatinine 1.00, Estimated Creat Clear 61, Estimated GFR 54 L, Est GFR ( Amer) 66, Glucose 127 H, Calcium 8.4, Magnesium 1.6, Total Bilirubin 1.0, AST 39 H, ALT 16, Alkaline Phosphatase 90, Troponin I < 0.01, NT-Pro-B Natriuret Pep 3160 H, Total Protein 6.3, Albumin 3.4 L, Globulin 2.9, Albumin/Globulin Ratio 1.2, HCV Ab NANCY w/Rflx PCR Qn Negative, HIV Ag/Ab Combo Qual Negative 03/04/25 04:45: Chlamy pneumoniae PCR Not detected, Adenovirus (PCR) Not detected, B. pertussis DNA (PCR) Not detected, Coronavirus OC43 (PCR) Not detected, Coronavirus HKU1 (PCR) Not detected, Coronavirus 229E (PCR) Not detected, SARS-CoV-2 (PCR) Not detected, Coronavirus NL63 (PCR) Not detected, Human Metapneumovir PCR Not detected, Influenza A (H1) PCR Not detected, Influ A (H1N1/09) PCR Not detected, Influenza A (H3) PCR Not detected, Influenza Type A (PCR) Not detected, Influenza Type B (PCR) Not detected, M. pneumoniae (PCR) Not detected, Parainfluenza 1 (PCR) Not detected, Parainfluenza 2 (PCR) Not detected, Parainfluenza 3 (PCR) Not detected, Parainfluenza 4 (PCR) Not detected, RSV (PCR) Not detected, Entero/Rhino (PCR) Not detected I & O for Last 24 hours: Intake & Output 03/01/25 03/02/25 03/03/25 03/04/25 23:59 23:59 23:59 23:59 Intake Total 50 / 50 Balance 50 / 50 Weight 77.111 kg Constitutional Constitutional: no acute distress, obese and cooperative *Routine HEENT Exam Head: Present normocephalic and atraumatic Eye: Present EOMI and PERRL ENT: Present mucous membranes moist *Routine Neck Exam Neck: Present supple, full ROM and trachea midline *Routine Respiratory Exam Respiratory: Present wheezes, diminished air movement, able to speak in complete sentences and symmetric chest movement *Routine Cardiovascular Exam Cardiovascular: Present RRR, Normal S1 and Normal S2 *Routine Abdominal Exam Abdominal: Present soft, normoactive bowel sounds and obese *Routine Rectal Exam Rectal:: deferred *Routine Genitalia Exam Genitalia:: deferred *Routine Extremities Exam Extremities: Present full ROM, pulses intact and normal capillary refill Routine Back/Spine/Pelvis Exam Back/Spine: Present full ROM *Routine Skin Exam Skin: Present dry, warm and normal turgor *Routine Neurological Exam Neurological: Present alert, oriented X3, CN II-XII intact, moving all extremities and normal speech Routine Psychiatric Exam Psychiatric: Present normal affect, normal thought process, cooperative, good insight and good judgment H&P: Result Impressions 74-year-old female who presents with shortness of air found to have a hypercapnic hypoxic respiratory failure with underlying right lower lobe community-acquired pneumonia. Assessment and Plan *Assessment and plan (1) Community acquired pneumonia: Status: Acute Qualifiers: Laterality: right Lung location: lower lobe of lung Qualified Code(s): J18.9 - Pneumonia, unspecified organism Category: Medical Code(s): J18.9 - Pneumonia, unspecified organism (2) Respiratory failure with hypoxia and hypercapnia: Status: Acute Qualifiers: Chronicity: acute on chronic Qualified Code(s): J96.21 - Acute and chronic respiratory failure with hypoxia; J96.22 - Acute and chronic respiratory failure with hypercapnia Category: Medical Code(s): J96.91 - Respiratory failure, unspecified with hypoxia; J96.92 - Respiratory failure, unspecified with hypercapnia (3) Acute exacerbation of chronic obstructive airways disease: Status: Acute Category: Medical Code(s): J44.1 - Chronic obstructive pulmonary disease with (acute) exacerbation (4) Leukocytosis: Status: Acute Qualifiers: Leukocytosis type: unspecified Qualified Code(s): D72.829 - Elevated white blood cell count, unspecified Category: Medical Code(s): D72.829 - Elevated white blood cell count, unspecified (5) Elevated brain natriuretic peptide (BNP) level: Status: Acute Category: Medical Code(s): R79.89 - Other specified abnormal findings of blood chemistry (6) Cardiomegaly: Status: Acute Category: Medical Code(s): I51.7 - Cardiomegaly (7) Normocytic anemia: Status: Acute Category: Medical Code(s): D64.9 - Anemia, unspecified Plan Assessment: Right lower lobe community-acquired pneumonia Acute on chronic hypoxic hypercapnic respiratory failure COPD exacerbation Leukocytosis - We will continue 750 mg levofloxacin p.o. daily - Patient states she has had a PFT in the past but does not remember how long ago it was - She is currently prescribed Trelegy - Patient may benefit from trilogy at home - Patient has a commercial device that she is using for supplemental oxygen - At time of discharge patient will perform 6-minute walk test to see if she qualifies for supplemental oxygen - DuoNebs every 6 hours - 40 mg of Solu-Medrol IV twice daily - 600 mg of Mucinex p.o. twice daily - 10 mg of Singulair p.o. daily - Sputum for culture - Patient will benefit from nocturnal BiPAP with an inspiratory pressure of 10 expiratory pressure of 5 Normocytic hypochromic anemia - May be due to iron deficiency - Will obtain anemia profile - No evidence of acute GI bleeding Cardiomegaly -: Seen on imaging Elevated BNP - Patient appears to be euvolemic - Elevation in BNP may be due to chronic stress on the ventricles Plan: Admit patient to the MedSurg unit Saline lock Case management Cardiac diet CBC/BMP daily 40 mg Lovenox subcu daily for DVT prophylax 5 mg [place] p.o. every 4 hours PMR pain 4 mg Zofran IV push. Hours pain nausea vomit Blood cultures x 2 Full code I will discuss this case with attending physician Dr. Ireland and I look forward to more input
--- NOTE | 2025-03-04 07:25 | PC.NURSE ---
report called to zakia on med surg
--- NOTE | 2025-03-04 07:38 | CA_ITS ---
APPROVED REPORT EXAM: Comprehensive 2D, Doppler, and color-flow Echocardiogram Unloader Operator: Leslie Foley RVT Ht: 5 ft 1 in Wt: 170lbs BSA: 1.76 BP: 134/87 mmHg Indications: SHORTNESS OF BREATH 2D Dimensions IVSd 1.56 cm F: 0.6-1.0 LVEF (Visual) 68.50 % PWd 1.13 cm F: 0.6 - 1.0 LA Volume 67.40 mL LVDd 5.74 cm F: 3.9 - 5.3 LA Volume Index 38.30 mL/m2 (M/F) 16-34 LVDs 3.51 cm F: 2.2 - 3.5 M-Mode Dimensions LA Diam 3.29 cm (1.9-4.0) TAPSE 2.78 (<1.7) LV Diastology E Decel Time 150 (160-240 msec) E/A Ratio 0.9 Aortic Valve WILLIAN Index 1.67 cm2/m2 AoV Peak Uday. 178.0 (50-130 cm/s) AO Peak GR. 12.70 mmHg AO Mean GR. 5.70 (<5 mmHg) AO VTI 30.4 (18-25 cm) WILLIAN (VTI) 3.03 (2.5-4.5 cm2) Mitral Valve MV E Max Uday. 136.0 (40-130 cm/s) MV A Velocity 144.0 (40-130 cm/s) E/A Ratio 0.95 MV PHT 44.0 ms Pulmonary Valve PV Peak Velocity 78.0 (50-150 cm/s) Tricuspid Valve TR P. Velocity 302.00 cm/s RAP Estimate 8.00 mmHg RVSP 44.40 mmHg Left Ventricle The left ventricle is normal size. Left ventricular systolic function is low-normal. There is increased left ventricular wall thickness. The septum is asynchronous. Transmitral Doppler flow pattern suggests impaired LV relaxation. LVEF is 50%. Right Ventricle The right ventricle is mildly dilated. The right ventricular systolic function is normal. Atria The left atrium is mildly dilated. The right atrium is mildly dilated. There is no color Doppler evidence of interatrial shunt. Aortic Valve The aortic valve is mildly thickened. There is no hemodynamically significant aortic valvular stenosis. Trace aortic regurgitation is present. Mitral Valve The mitral valve is normal in structure. No evidence of mitral valve stenosis. Trace mitral regurgitation is present. Tricuspid Valve The tricuspid valve leaflets are thin and pliable. Mild tricuspid regurgitation. RVSP is 30-35 mmHg. Pulmonic Valve The pulmonary valve is grossly normal in structure. Trace pulmonic valve regurgitation is present. Great Vessels The aortic root is normal in size. IVC is normal in size and collapses >50% with inspiration. Pericardium There is no pericardial effusion. Other Information Study Quality: Fair Conclusion Low-normal LV systolic function (LVEF 50%). Mild RV dilation. Mild biatrial dilation. Mild TR. Electronically signed by : Melissa Garcia MD 03/04/2025 18:38:13
--- NOTE | 2025-03-04 07:42 | CT_ITS ---
FINAL REPORT TECHNIQUE: After the administration of intravenous contrast, axial images through the chest were performed by computed tomography.This study was performed with techniques to keep radiation doses as low as reasonably achievable, (ALARA). Individualized dose reduction techniques using automated exposure control or adjustment of mA and/or kV according to the patient''s size were employed. CLINICAL HISTORY: eval right lung/pna/effusion, previous abnl Jul 06 COMPARISON: 07/06/2024 FINDINGS: There is no axillary adenopathy. There is no hilar or mediastinal adenopathy. The heart size is normal. There is no pericardial or pleural effusion. There are patchy densities throughout the right lung and a multilobular distribution. Some have a nodular configuration. Distribution is different than on the prior exam. Findings suggest recurrent bronchopneumonia. More dominant nodular density described in the right middle lobe on the previous exam has since resolved. The left lung is clear. There is a moderate hiatal hernia. Limited images of the upper abdomen are unremarkable. IMPRESSION: Findings compatible with extensive recurrent right lung bronchopneumonia. Reviewed, Interpreted and Dictated by Katherine Teixeira MD Transcribed by Omaira Prajapati Authenticated and [facility]
--- NOTE | 2025-03-04 07:50 | PC.NURSE ---
call made to lyla tech from ED transporting pt upstairs in wheelchair
[2025-03-04 08:08] LABS: Troponin I 0.02 ng/ml (0.00-0.034)
[2025-03-04] MEDS: guaiFENesin 600 MG TAB.ER.12H PO ×2 (09:03→20:32)
[2025-03-04] MEDS: METHYLPREDNISOLONE SOD SUCC 40MG VIAL 40 MG IV ×2 (09:03→20:31)
[2025-03-04] MEDS: FUROSEMIDE 40MG/4ML VIAL 40 MG IV (09:03)
--- NOTE | 2025-03-04 09:18 | HMH.PHAINT1 ---
Pharmacy Intervention Comments: MEDICATION RECONCILIATION COMPLETED ON PATIENT USING EXTERNAL FILL HISTORY FROM PHARMACY. -TONIO CARDENAS, [place]
--- NOTE | 2025-03-04 10:29 | HMH.OTEV ---
OT Evaluation Rehab OT IP Evaluation Start: 03/04/25 08:50 Freq: ONCE Status: Active Protocol: Document 03/04/25 10:24 RMARSHALL (Rec: 03/04/25 10:29 [facility] [id number]) Rehab OT IP Assessment Subjective History Pt oriented x3 on arrival. Pt agreeable to engage in therapy evaluation. Pt admitted on 03/04/25 due to COPD. History and physical: HCO3 31.1,This is a 74-year-old female who has a past medical history significant for COPD, asthma , bronchitis, [place], (has no cardiac stents), hypothyroidism, and home O2 at 2-3 L who presents with a chief complaint of shortness of air. Due to patient' s symptoms, EMS presented to patient's home residence where she was noted to have oxygen saturations on her home O2 regimen of 60%. Per EMS, patient was obtunded. She was transition to [facility] and given multiple nebulized treatments. Plain films of the chest revealed stable cardiomegaly and right basilar airspace opacity atelectasis versus aspiration or infiltrate. As a result, patient is being admitted for further management. During my evaluation of the patient, patient states that her symptoms started approximately 1-2 days ago and progressively got worse. Patient states she has had a nonproductive cough and wheezing noted. Family member noted that patient started to become lethargic and that is the reason why they called EMS. On further questioning, patient states she uses Trelegy inhaler and albuterol. Spouse and patient voices purchasing a commercial oxygen device that is portable. They do not believe that device is adequate for her. They would like to see if patient qualifies for supplemental oxygen upon discharge. Patient states she had a home nebulizer in the past but did not like the device and no longer uses it. She is currently denying any chest pain, lightheadedness, hematochezia, hematemesis, hematuria, melena stool, dizziness, fever, chills, rigors, nausea, vomiting, or diarrhea. Patient states she cannot tolerate laying flat. Additional pertinent vitals obtained including white blood cell count of 22. 4, red blood cell count of 4.09, hemoglobin 9.3, hematocrit 33.5, neutrophils 85.4%, pCO2 61.9, sodium 134, carbon oxide 34, GFR 54, blood glucose 127, AST of 39, and BNP of 3160. Subjective Prior to being in the hospital, pt lived at home with her . Pt claims normally she is independent with all ADLs and IADLs. Pt also still drives at times . Pt does use a walker during functional transfers. Objective Patient Orientation Person,Place,Birthday Right Upper WFL Extremity Gross ROM Left Upper Extremity WFL Gross ROM Bed Mobility bed mobility-scooting,bed mobility - supine/sit Assist Level Contact Guard/Hand Hold Transfer Training Sit/Stand/Step Transfer Assist Level Minimal x 1 (25% assist) Rehab OT IP prob,goals,plan Problems Date of Evaluation: 03/04/25 OT IP Problems Bed Mobility,Transfers,Balance,Self care,Safety Rehab Potential Rehab Potential Good Equipment Needs Assistive Devices Rolling / Wheeled Walker Plan OT intervention Plan Bed Mobility,Transfers,Balance,Self care,Safety, Therapeutic Exercise OT Plan Frequency Daily Duration LOS Discharge Goals Bed Mobility Ability Standby Assistance Sit to Stand Chair Contact Guard/Hand Hold Transfer Ability Chair Transfer Supervision/Stand by Ability Chair Transfer Sit to/from Ambulatory Technique Chair Transfer Rolling Walker Assistive Devices Lower Body Dressing Contact Guard Ability Upper Body Dressing Standby Assistance Ability Performing Toilet Contact Guard Hygiene Ability Overall Commode/ Contact Guard Toilet Transfer Ability Commode/Toilet Sit to/from Ambulatory Transfer Technique Oral Care Assist Contact Guard Discharge Plan OT Discharge Plan Pt will continue to be seen for OT services while at [facility]. Pt can discharge home with her husbands assistance as needed. Therapist does recommend HH OT evaluation upon returning home for continued skilled therapy services. Continued skilled therapy services are in important in order for patient to improve strength, safety, endurance, ADL independence, and functional transfers to reach PLOF. Eval Complexity Eval Charge Codes 52075 - Moderate Complexity PHYSICIAN CERTIFICATION: I certify the specified therapy services for Adri Mendoza are required, authorized, and reviewed every 30 days.
[2025-03-04] MEDS: SODIUM CHLORIDE 0.9% 10ML SYR (RAD ONLY) 10 ML IV (10:41)
[2025-03-04] MEDS: IOPAMIDOL-370 (76%);100ML BOTTLE 75 ML IV (10:41)
[2025-03-04] MEDS: IPRATROPIUM/ALBUTEROL 3 ML NEB IH ×2 (10:50→17:48)
[2025-03-04] MEDS: SODIUM CHLORIDE 3% 15ML NEB 3 ML IH (10:51)
--- NOTE | 2025-03-04 11:04 | HMH.PTEV ---
Physical Therapy Evaluation Rehab PT IP Evaluation Start: 03/04/25 08:50 Freq: ONCE Status: Active Protocol: Document 03/04/25 10:53 PAT (Rec: 03/04/25 11:03 PAT [id number]) Subjective/History History History Per H&P: HCO3 31.1, This is a 74-year-old female who has a past medical history significant for COPD, asthma, bronchitis, [place], (has no cardiac stents), hypothyroidism, and home O2 at 2-3 L who presents with a chief complaint of shortness of air. Due to patient' s symptoms, EMS presented to patient's home residence where she was noted to have oxygen saturations on her home O2 regimen of 60%. Per EMS, patient was obtunded. She was transition to [facility] and given multiple nebulized treatments. Plain films of the chest revealed stable cardiomegaly and right basilar airspace opacity atelectasis versus aspiration or infiltrate. As a result, patient is being admitted for further management. During my evaluation of the patient, patient states that her symptoms started approximately 1-2 days ago and progressively got worse. Patient states she has had a nonproductive cough and wheezing noted. Family member noted that patient started to become lethargic and that is the reason why they called EMS. On further questioning, patient states she uses Trelegy inhaler and albuterol. Spouse and patient voices purchasing a commercial oxygen device that is portable. They do not believe that device is adequate for her. They would like to see if patient qualifies for supplemental oxygen upon discharge. Patient states she had a home nebulizer in the past but did not like the device and no longer uses it. She is currently denying any chest pain, lightheadedness, hematochezia, hematemesis, hematuria, melena stool, dizziness, fever, chills, rigors, nausea, vomiting, or diarrhea. Patient states she cannot tolerate laying flat. Additional pertinent vitals obtained including white blood cell count of 22. 4, red blood cell count of 4.09, hemoglobin 9.3, hematocrit 33.5, neutrophils 85.4%, pCO2 61.9, sodium 134, carbon oxide 34, GFR 54, blood glucose 127, AST of 39, and BNP of 3160. Subjective Subjective I'm not standing or walking Pt reports she still needs time to recover prior to mobility assessment. Pt eventually agreeable to PT evaluation with encouragement and education. Pt reports she lives in a single-story home with her . Pt normally able to ambulate with RW IND. New diagnosis of No cancer in past 12 months? [facility] How much help from another person do you currently need... Turning from your None back to your side while in a flat bed without using bedrails? Moving from lying on None back to sitting on the side of a flat bed without using bedrails? Moving to and from a None bed to a chair ( including a wheelchair)? Standing up from a A little chair using your arms? (e.g., wheelchair, bedside chair) Walking in hospital A little room? Climbing 3-5 steps A little with a railing? Mobility Score 21 Mobility Level [facility] Mobility 6 Walk 10 steps or more Mobility Calculator Rehab PT IP Eval Objective Appearance Patient Orientation Person,Situation Difficulty following none instructions Speech Pattern Clear Ambulation Patient Able to No Ambulate Balance Ability to Arise Able, uses arms to help Sitting Balance Steady, safe Standing Balance Steady, wide stance Dynamic Sitting Good Balance Ability Transfers Bed Transfer Ability Supervision/Stand by Sit to Stand Bed Contact Guard/Hand Hold Transfer Ability Rehab PT IP prob,goals,plan Problems Date of Evaluation: 03/04/25 PT IP Problems Bed Mobility,Transfers,Gait,Balance,Self care,Safety Rehab Potential Rehab Potential Good Plan PT Intervention Plan Bed Mobility,Transfers,Gait,Balance,Self care,Safety, Therapeutic Exercise Other Intervention 1-2 times Plan PT Plan Frequency Daily Duration LOS Discharge Goals Bed Transfer Ability Independent Sit to Stand Chair Independent Transfer Ability Ambulation Assistive Rolling Walker Device Ambulation Distance 20 (feet) Discharge Plan PT Discharge Plan Initial physical therapy evaluation performed. Patient presents below baseline at this time in functional mobility, transfers, gait, and strength. Pt would benefit from skilled PT while at [facility] to prevent further functional decline and maximize safety with mobility. Pt most appropriate to d/c home with 24/7 assistance provided by . If pt does not have 24/7 assistance from , pt would benefit from inpatient rehabilitation. PT recommending home health PT services to address deficits. Eval Complexity Eval Charge Codes 30221 - Moderate Complexity PHYSICIAN CERTIFICATION: I certify the specified therapy services for Adri Mtzor are required, authorized, and reviewed every 30 days.
--- NOTE | 2025-03-04 11:18 | PC.NURSE ---
Pt is 86% on RA
--- NOTE | 2025-03-04 11:19 | PC.NURSE ---
Patient's oxygen saturation 86% on room air at rest.
--- NOTE | 2025-03-04 12:19 | SW/DCPLANNER ---
Addendum entered by Oriana Elias 03/07/25 10:01: Spoke with patient again regarding home health services once she is medically stable and ready for discharge and patient stated that she is not interested in having any one come into her home. Brad Saenz Original Note: Spoke with patient regarding home health services once she is medically stable and ready for discharge. Patient stated that she is not interested in home health at this time. Brad Saenz
[2025-03-04] MEDS: HYDROCODONE/APAP 5/325 MG TABLET 1 TAB PO (12:23)
[2025-03-04] MEDS: GABAPENTIN 600MG TABLET 600 MG PO ×3 (13:04→20:31)
[2025-03-04] MEDS: OXYCODONE 10MG W/APAP 325MG TABLET 1 EACH PO ×2 (14:50→20:31)
--- NOTE | 2025-03-04 15:33 | HMH.SLDYSPHA ---
Speech & Language Evaluation Speech/Language Dysphagia Evaluation Start: 03/04/25 15:15 Freq: ONCE Status: Active Protocol: [facility]25 15[facility] (Rec: 03/04/25 15:33 [facility] [id number]) Dysphagia Assess/Goals/Plan Assessment Date of Evaluation: 03/04/25 Evaluation Type Initial Certification Assessment/Problems aspiration cocnerns per MD order Does Patient Qualify No for Service Qualify/Failure Based on clinical observations made throughout CSE and Comment patient and nursing interviews, mastication and manipulation of bolus and swallowing WFL. No further skilled speech therapy services are warranted at this time. Recommendations PHYSICIAN CERTIFICATION: The specified therapy services are required, authorized, and reviewed every 30 days. Diet Recommendations Normal Liquid Type Normal/Thin Recommendations SL Swallow Alt bite w/sip thru meal,Standard Aspiration Prec. Guidelines Dysphagia Swallow Small Bites and Sips,Alternate Liquids/Solids Precautions/ Strategies Plan Pt/Guardian verbally Yes ack understanding of dx/prognosis/ goals G -code Required No Education Instructions Discussed CSE and recs with pt, nursing, and care provided management all of which expressed understanding. Pt/Caregiver able to Able to recall/restate recall information Reinforcement needed No Speech & Language HPI History Present Illness Description of [employer] pulled following information from chart review and Patient Problem H&P, This is a 74-year-old female who has a past medical history significant for COPD, asthma, bronchitis, [place], (has no cardiac stents), hypothyroidism , and home O2 at 2-3 L who presents with a chief complaint of shortness of air. Due to patient's symptoms, EMS presented to patient's home residence where she was noted to have oxygen saturations on her home O2 regimen of 60%. Per EMS, patient was obtunded. She was transition to [facility] and given multiple nebulized treatments. Plain films of the chest revealed stable cardiomegaly and right basilar airspace opacity atelectasis versus aspiration or infiltrate. As a result, patient is being admitted for further management. During my evaluation of the patient, patient states that her symptoms started approximately 1-2 days ago and progressively got worse. Patient states she has had a nonproductive cough and wheezing noted. Family member noted that patient started to become lethargic and that is the reason why they called EMS. On further questioning, patient states she uses Trelegy inhaler and albuterol. Spouse and patient voices purchasing a commercial oxygen device that is portable. They do not believe that device is adequate for her. They would like to see if patient qualifies for supplemental oxygen upon discharge. Patient states she had a home nebulizer in the past but did not like the device and no longer uses it. She is currently denying any chest pain, lightheadedness, hematochezia, hematemesis, hematuria, melena stool, dizziness, fever, chills, rigors, nausea, vomiting, or diarrhea. Patient states she cannot tolerate laying flat. Additional pertinent vitals obtained including white blood cell count of 22. 4, red blood cell count of 4.09, hemoglobin 9.3, hematocrit 33.5, neutrophils 85.4%, pCO2 61.9, sodium 134, carbon oxide 34, GFR 54, blood glucose 127, AST of 39, and BNP of 3160. Chest CT reports: FINDINGS: There is no axillary adenopathy. There is no hilar or mediastinal adenopathy. The heart size is normal. There is no pericardial or pleural effusion. There are patchy densities throughout the right lung and a multilobular distribution. Some have a nodular configuration. Distribution is different than on the prior exam. Findings suggest recurrent bronchopneumonia. More dominant nodular density described in the right middle lobe on the previous exam has since resolved. The left lung is clear. There is a moderate hiatal hernia. Limited images of the upper abdomen are unremarkable. IMPRESSION: Findings compatible with extensive recurrent right lung bronchopneumonia. Pt/Caregiver Pt reports no concerns/hx of difficulty Concerns General Information General Current Food Regular,Thin Liquids Consistancy Oxygen Status Nasal Cannula Ability to Follow Good Directions Communication Mild Impairment Ability Dysphagia:Food Presentation Evaluation Food Type Pureed,Regular,Liquid,Pudding Dysphagia Evaluation Pt was seen sitting upright in bed this afternoon for Summary CSE. Pt was taking meds with nursing upon entry and tolerated well. Pt was nonagreeable to [facility] bar trial. Was given: thins, pudding, pureed applesauce , and regular. All trials given x2 for consistency and/ or fatigue. Straw sips and subsequent straw sips of sprite and water, applesauce, pudding and hussain crackers were given. No overt s/sxs of aspiration observed. Pt is able to continue on current diet. No further skilled speech therapy services are warranted at this time. Stroke Dysphagia Assessment PHYSICIAN CERTIFICATION: I certify the specified therapy services for Adri Mendoza are required, authorized, and reviewed every 30 days.
[2025-03-04] MEDS: MONTELUKAST SODIUM 10MG TAB 10 MG PO (20:32)
[2025-03-04] MEDS: PANTOPRAZOLE 40MG TABLET 40 MG PO (20:32)
[2025-03-05] VITALS (10 sets, daily range): BP systolic 141–188; BP diastolic 72–95; PULSE 72–100; RESP 12–18; TEMP 36.4–36.8; O2SAT 90–95; BMI 35.2
[2025-03-05] MEDS: IPRATROPIUM/ALBUTEROL 3 ML NEB IH ×5 (00:36→23:31)
--- NOTE | 2025-03-05 03:01 | PC.NURSE ---
Pt AOx4. Diminished lung sounds. On continuous pulse ox, tolerating 1.5L nasal cannula. Has c/o pain throughout shift with some relief from prn pain medication, administered per JUL. Currently resting in bed with eyes closed. Respirations even and unlabored. Bed is low, locked, and call light is in reach.
[2025-03-05] MEDS: OXYCODONE 10MG W/APAP 325MG TABLET 1 EACH PO ×3 (04:31→20:32)
[2025-03-05] MEDS: LEVOTHYROXINE 75MCG (0.075MG) TAB 75 MCG PO (06:24)
[2025-03-05] MEDS: FLUTICASONE/UMECLIDIN/VILANTER 100/62.5/25MCG INHALER 1 PUFF IH (06:25)
[2025-03-05 06:58] LABS: Hematocrit 30.1 % (37.0-47.0); Hemoglobin 8.3 g/dL (12.2-16.2); Immature Granulocytes % 1.1 %; Mean Corpuscular HGB Conc 27.6 g/dL (31.8-35.4); Mean Corpuscular Hemoglobin 22.4 pg (27.0-31.2); Mean Corpuscular Volume 81.1 fl (81-99); Nucleated Red Blood Cells % 0 %; Platelet Count 244 K/mm3 (142-424); Red Blood Count 3.71 M/mm3 (4.20-5.40); Red Cell Distribution Width-SD 54.4 fL; Reticulocyte % (Auto) 1.2 % (0.9-3.2); White Blood Count 21.7 K/mm3 (4.8-10.8)
[2025-03-05 07:02] LABS: Chloride 96 mmol/L (98-107); Sodium 133 mmol/L (136-145)
[2025-03-05 07:03] LABS: Potassium 3.8 mmoL/L (3.5-5.1)
[2025-03-05 07:05] LABS: Anion Gap 6.8 mEq/L (5-15); Blood Urea Nitrogen 23 mg/dl (7-17); Carbon Dioxide 34 mmol/L (22.0-30.0); Creatinine Clearance Estimated 59 mL/min (50-200); Creatinine,Serum 1.10 mg/dl (0.52-1.04); Estimated Glomerular Filt Rate 49 ml/min (>60); GFR (African American) 59 ML/MIN (>60)
[2025-03-05 07:06] LABS: Calcium 8.5 mg/dl (8.4-10.2); Glucose 186 mg/dl (74-100)
[2025-03-05] MEDS: METHYLPREDNISOLONE SOD SUCC 40MG VIAL 40 MG IV (08:22)
[2025-03-05] MEDS: GABAPENTIN 600MG TABLET 600 MG PO ×4 (08:22→20:33)
[2025-03-05] MEDS: guaiFENesin 600 MG TAB.ER.12H PO ×2 (08:23→20:32)
[2025-03-05] MEDS: BISOPROLOL 5MG TABLET 5 MG PO (08:23)
[2025-03-05] MEDS: PANTOPRAZOLE 40MG TABLET 40 MG PO ×2 (08:23→20:32)
[2025-03-05 09:47] LABS: Hemoglobin A1C 5.1 % (4.0-6.0)
[2025-03-05] MEDS: humaLOG 100 UNITS/ML 10ML VIAL (SSI) SUBCUT ×2 (10:52→16:23)
[2025-03-05 10:54] LABS: POC Glucose,Bedside 184 gm/dL (70-110)
[2025-03-05 11:42] LABS: RBC Morphology Normal; Total Cells Counted 100
[2025-03-05 11:53] LABS: Vitamin B12 202 pg/mL (239-931)
[2025-03-05 12:23] LABS: Folate 6.83 ng/mL
--- NOTE | 2025-03-05 13:36 | P.PN_ITS ---
Subjective *Date: 03/05/25 *Time: 14:03 Interval history: Continues to be weak today, states she does not feel a whole lot better. White count with marginal change from 22-21. Still requiring 1.5 L oxygen. Morning glucose was elevated at 196. Obtained A1c that was normal. Having productive cough, sputum sample obtained. Medical Exam Vital signs and Labs for Last 24 Hours: Vital Signs Temp Pulse Pulse Resp BP Pulse Ox O2 Del Method 03/05/25 13:00 Nasal Cannula 03/05/25 11:41 86 17 03/05/25 11:18 86 03/05/25 11:18 94 H 03/05/25 11:18 93 L Nasal Cannula 03/05/25 11:00 Nasal Cannula 03/05/25 09:00 Nasal Cannula 03/05/25 08:00 Nasal Cannula 03/05/25 07:52 98.2 F 98 H 18 141/80 H 93 L Nasal Cannula 03/05/25 06:30 Nasal Cannula 03/05/25 06:26 92 H 03/05/25 06:26 100 H 03/05/25 06:26 92 L Nasal Cannula 03/05/25 05:00 Nasal Cannula 03/05/25 04:00 98.2 F 72 12 156/72 H 90 L Nasal Cannula 03/05/25 03:00 Nasal Cannula 03/05/25 01:00 Nasal Cannula 03/05/25 00:37 82 03/05/25 00:37 80 03/04/25 23:00 Nasal Cannula 03/04/25 21:00 Nasal Cannula 03/04/25 20:00 98.2 F 79 12 143/80 H 94 L Nasal Cannula 03/04/25 20:00 Nasal Cannula 03/04/25 18:42 Nasal Cannula 03/04/25 17:49 97 H 03/04/25 17:49 94 H 03/04/25 17:49 90 L Nasal Cannula 03/04/25 17:10 Room Air 03/04/25 16:00 98.3 F 104 H 16 155/93 H 92 L Nasal Cannula 03/04/25 15:16 Nasal Cannula 03/04/25 15:05 Nasal Cannula O2 Flow Rate 03/05/25 13:00 2 03/05/25 11:41 03/05/25 11:18 03/05/25 11:18 03/05/25 11:18 1 03/05/25 11:00 3 03/05/25 09:00 2 03/05/25 08:00 1 03/05/25 07:52 2 03/05/25 06:30 1.5 03/05/25 06:26 03/05/25 06:26 03/05/25 06:26 1 03/05/25 05:00 1.5 03/05/25 04:00 2 03/05/25 03:00 1.5 03/05/25 01:00 2 03/05/25 00:37 03/05/25 00:37 03/04/25 23:00 1.5 03/04/25 21:00 1.5 03/04/25 20:00 2 03/04/25 20:00 1.5 03/04/25 18:42 2 03/04/25 17:49 03/04/25 17:49 03/04/25 17:49 1 03/04/25 17:10 03/04/25 16:00 1 03/04/25 15:16 03/04/25 15:05 1.5 Intake and Output 03/04/25 03/05/25 03/05/25 23:59 07:59 15:59 Intake Total 260 / 1050 480 / 480 Output Total 1100 / 1550 350 / 550 200 / 550 Balance -840 / -500 -350 / -70 280 / -70 Intake: Intake, Oral Amount 260 / 850 480 / 480 Output: Output, Urine Amount 1100 / 1550 350 / 550 200 / 550 Other: Number of Unmeasured Voids 0 0 0 Number of Bowel Movements 1 Weight 81.465 kg Patient Weight 03/05/25 23:59 Weight 81.465 kg Laboratory Results - last 24 hr 03/05/25 06:17: WBC 21.7 H*, RBC 3.71 L, Hgb 8.3 L, Hct 30.1 L, MCV 81.1, MCH 22.4 L, MCHC 27.6 L, RDW 18.3 H, Plt Count 244, MPV 8.8, Neut % (Auto) 94.3 H, Lymph % (Auto) 1.5 L, [place] % (Auto) 3.0, Eos % (Auto) 0.0 L, Baso % (Auto) 0.1, Neut # (Auto) 20.4 H, Lymph # (Auto) 0.3 L, [place] # (Auto) 0.6, Eos # (Auto) 0.0, Baso # (Auto) 0.0, Total Counted 100, Neutrophils % (Manual) 96 H, Lymphocytes % (Manual) 2 L, Monocytes % (Manual) 2, Platelet Estimate Normal, RBC Morphology Normal, Retic Count (auto) 1.2, Sodium 133 L, Potassium 3.8, Chloride 96 L, Carbon Dioxide 34 H, Anion Gap 6.8, BUN 23 H D, Creatinine 1.10 H, Estimated Creat Clear 59, Estimated GFR 49 L, Est GFR ( Amer) 59, Glucose 186 H, Hemoglobin A1c 5.1, Calcium 8.5, Vitamin B12 202 L, Folate 6.83 03/05/25 10:47: POC Glucose 184 H I & O for Labs for Last 24 Hours: Intake & Output 03/02/25 03/03/25 03/04/25 03/05/25 23:59 23:59 23:59 23:59 Intake Total 1050 / 1050 480 / 480 Output Total 1550 / 1550 550 / 550 Balance -500 / -500 -70 / -70 Weight 82.299 kg 81.465 kg Microbiology Reports for the Last 24 Hours: Microbiology 03/05/25 11:30 Sputum - Expectorated Sputum Gram Stain - Final 03/04/25 05:05 Blood Blood Culture - Preliminary NO GROWTH AFTER 24 HOURS 03/04/25 05:05 Blood Blood Culture - Preliminary NO GROWTH AFTER 24 HOURS Constitutional: Present no acute distress, obese, chronically ill appearing and cooperative Head: Present atraumatic Respiratory: Present rhonchi, crackles (Right lower lung field) and normal respiratory effort; Absent wheezes Cardiac: Present Reg Rate and Rhythm GI: Present soft and normal bowel sounds; Absent distention or tenderness Extremities: Present normal inspection and full ROM Skin: Present intact; Absent erythema Neuro: Present Grossly Intact, alert, awake, oriented x 3 and moves all extremities Assessment and Plan *Assessment and plan (1) Community acquired pneumonia: Status: Acute Qualifiers: Laterality: right Lung location: lower lobe of lung Qualified Code(s): J18.9 - Pneumonia, unspecified organism Category: Medical Code(s): J18.9 - Pneumonia, unspecified organism (2) Respiratory failure with hypoxia and hypercapnia: Status: Acute Qualifiers: Chronicity: acute on chronic Qualified Code(s): J96.21 - Acute and chronic respiratory failure with hypoxia; J96.22 - Acute and chronic respiratory failure with hypercapnia Category: Medical Code(s): J96.91 - Respiratory failure, unspecified with hypoxia; J96.92 - Respiratory failure, unspecified with hypercapnia (3) Acute exacerbation of chronic obstructive airways disease: Status: Acute Category: Medical Code(s): J44.1 - Chronic obstructive pulmonary disease with (acute) exacerbation (4) Leukocytosis: Status: Acute Qualifiers: Leukocytosis type: unspecified Qualified Code(s): D72.829 - Elevated white blood cell count, unspecified Category: Medical Code(s): D72.829 - Elevated white blood cell count, unspecified (5) Elevated brain natriuretic peptide (BNP) level: Status: Acute Category: Medical Code(s): R79.89 - Other specified abnormal findings of blood chemistry (6) Cardiomegaly: Status: Acute Category: Medical Code(s): I51.7 - Cardiomegaly (7) Normocytic anemia: Status: Acute Category: Medical Code(s): D64.9 - Anemia, unspecified (8) (HFpEF) heart failure with preserved ejection fraction: Status: Acute Category: Medical Code(s): I50.30 - Unspecified diastolic (congestive) heart failure Plan Presented with shortness of breath. Found to have right lower lobe pneumonia. Evaluated by speech therapy on 03/04, no concern for aspiration on bedside eval. Location of pneumonia and recurrence however concerning for aspiration component. Will treat as community-acquired pneumonia, consistent with bacterial source based on thick yellow sputum and focal findings in right lower lung field. Sputum culture pending. Continues to require patient management. PSI port score of 93 on admission. Therapies evaluated and recommend discharge home with home health and medically stable. Problems addressed as follows: Right lower lobe community-acquired pneumonia Acute on chronic hypoxic hypercapnic respiratory failure COPD exacerbation Leukocytosis - We will continue 750 mg levofloxacin p.o. daily for at least 5 days. -DuoNebs every 6 hours scheduled. Continue Trelegy 100 inhaler -Discontinue steroids due to hyperglycemia and persistent leukocytosis along with active infection and mild component of COPD -Continue supplemental oxygen for goal sats greater 90%. 1 1 to 2 L today -Has commercial device for oxygen that she purchased on her own. Evaluate for qualification for oxygen for insurance prior to discharge. Consider 6-minute walk test if not qualifying at rest. - 600 mg of Mucinex p.o. twice daily - 10 mg of Singulair p.o. daily - Sputum and blood cultures pending - White count 21.7, repeat CBC, CMP, magnesium ordered for the morning kidney function normal BUN 23, creatinine 1.1. Hyperglycemia: Glucose 186 this morning. Suspect secondary to steroids. A1c obtained, 5.1. Initiate sliding scale insulin low-dose while admitted Normocytic hypochromic anemia - May be due to iron deficiency, hemoglobin 8.3 this morning. - B12 low at 202, folate 6.8, TIBC and iron level pending; No evidence of acute GI bleeding - MCV on the low end of normal at 81.1. Will administer 200 mg IV Venofer x 1 - Will administer 1000 mcg IM cyanocobalamin x 1 Cardiomegaly HFpEF -Echo obtained 03/04/25 with normal EF of 50%. RVSP mildly elevated at 30 to 35 mmHg. BNP of 3100 on admission. Responded well to diuresis x 1. Improving oxygen requirement. Reevaluate diuresis again in the morning. He had continue bisoprolol 5 mg daily Hypothyroid: Continue levothyroxine 75 mcg daily GERD: Continue pantoprazole 40 mg twice daily Chronic pain: Continue oxycodone 6 times a day as needed; continue gabapentin 600 mg 4 times a day Full code Regular diet Lovenox 40 mg subcu daily
[2025-03-05] MEDS: VITAMIN B-12 1,000 MCG 1ML VIAL 1000 MCG IM (14:19)
[2025-03-05] MEDS: IRON SUCROSE COMPLEX 200 MG in 0.9 % SODIUM CHLORIDE 100 ML 220 MG IV (14:19)
[2025-03-05 14:22] LABS: Iron 36 ug/dL (37-170)
[2025-03-05 14:31] LABS: Total Iron Binding Capacity 348 ug/dL (265-497)
[2025-03-05 14:59] LABS: Ferritin 25.8 ng/ml (11.1-264)
[2025-03-05 16:25] LABS: POC Glucose,Bedside 206 gm/dL (70-110)
--- NOTE | 2025-03-05 17:19 | PC.NURSE ---
Pt is A&Ox4. Vital signs stable tolerating 2L NC. ACHS fsbs checked and treated with SSI per JUL. IV iron infused per JUL. Pt has taken pills whole and eaten a cardiac diet with no difficulty. Pt complains of generalized pain. PRN pain medication given per JUL. Pt has refused repositioning in bed. Pt resting comfortably sitting up in bed with no further needs voiced at this time. Call light within reach.
[2025-03-05] MEDS: MONTELUKAST SODIUM 10MG TAB 10 MG PO (20:33)
[2025-03-06] VITALS (7 sets, daily range): BP systolic 129–155; BP diastolic 68–95; PULSE 77–97; RESP 16–18; TEMP 36.6–36.9; O2SAT 91–98; BMI 35.9
[2025-03-06] MEDS: OXYCODONE 10MG W/APAP 325MG TABLET 1 EACH PO ×4 (03:14→21:11)
[2025-03-06] MEDS: LEVOTHYROXINE 75MCG (0.075MG) TAB 75 MCG PO (06:13)
[2025-03-06] MEDS: FLUTICASONE/UMECLIDIN/VILANTER 100/62.5/25MCG INHALER 1 PUFF IH (06:54)
[2025-03-06] MEDS: IPRATROPIUM/ALBUTEROL 3 ML NEB IH ×3 (06:54→19:21)
[2025-03-06 07:42] LABS: Hematocrit 31.3 % (37.0-47.0); Hemoglobin 8.3 g/dL (12.2-16.2); Immature Granulocytes % 0.8 %; Mean Corpuscular HGB Conc 26.5 g/dL (31.8-35.4); Mean Corpuscular Hemoglobin 21.8 pg (27.0-31.2); Mean Corpuscular Volume 82.4 fl (81-99); Nucleated Red Blood Cells % 0 %; Platelet Count 232 K/mm3 (142-424); Red Blood Count 3.80 M/mm3 (4.20-5.40); Red Cell Distribution Width-SD 54.7 fL; White Blood Count 17.2 K/mm3 (4.8-10.8)
[2025-03-06 07:53] LABS: Chloride 98 mmol/L (98-107); Sodium 135 mmol/L (136-145)
[2025-03-06 07:54] LABS: Potassium 4.1 mmoL/L (3.5-5.1)
[2025-03-06 07:56] LABS: Blood Urea Nitrogen 29 mg/dl (7-17); Creatinine Clearance Estimated 55 mL/min (50-200); Creatinine,Serum 1.20 mg/dl (0.52-1.04); Estimated Glomerular Filt Rate 44 ml/min (>60); GFR (African American) 53 ML/MIN (>60)
[2025-03-06 07:57] LABS: Anion Gap 6.1 mEq/L (5-15); Calcium 8.4 mg/dl (8.4-10.2); Carbon Dioxide 35 mmol/L (22.0-30.0); Glucose 91 mg/dl (74-100)
--- NOTE | 2025-03-06 08:12 | P.PN_ITS ---
Subjective *Date: 03/06/25 *Time: 13:35 Interval history: The patient is seen and evaluated today with nursing staff at bedside (Luisa). Nursing staff report that she remains afebrile with stable vital signs and saturating intermittently on 2 L of oxygen via nasal cannula. The patient r eports that she normally uses 2 to 3 L at home. She lives in [place] with her who is at bedside. She typically follows with Dr. Irene her PCP. Pulmonology is due to evaluate the patient. Her morning labs identified continued leukocytosis with cultures that are negative. We discussed her hypercapnia and she is resistant to NIPPV therapy. The patient has identified improvement. Exam Data for Last 24 hours Vital signs and Labs for Last 24 Hours: Temp Pulse Resp BP Pulse Ox O2 Del Method O2 Flow Rate 97.8 F 82 16 139/68 98 Nasal Cannula 2 03/06/25 04:00 03/06/25 06:54 03/06/25 04:00 03/06/25 04:00 03/06/25 06:54 03/06/25 06:54 03/06/25 06:54 Laboratory Results - last 24 hr 03/05/25 06:17: Total Counted 100, Neutrophils % (Manual) 96 H, Lymphocytes % (Manual) 2 L, Monocytes % (Manual) 2, Platelet Estimate Normal, RBC Morphology Normal, Hemoglobin A1c 5.1, Iron 36 L, TIBC 348, Iron Saturation 10.30449 L, Ferritin 25.8, Vitamin B12 202 L, Folate 6.83 03/05/25 10:47: POC Glucose 184 H 03/05/25 16:17: POC Glucose 206 H I & O for Last 24 hours: Intake & Output 03/03/25 03/04/25 03/05/25 03/06/25 23:59 23:59 23:59 23:59 Intake Total 1050 / 1050 590 / 590 Output Total 1550 / 1550 950 / 1350 900 / 900 Balance -500 / -500 -360 / -760 -900 / -900 Weight 82.299 kg 81.465 kg 83.121 kg Microbiology Reports for the Last 24 Hours: Microbiology 03/05/25 11:30 Sputum - Expectorated Sputum Gram Stain - Final 03/05/25 11:30 Sputum - Expectorated Sputum Sputum Culture - Final No growth. 03/04/25 05:05 Blood Blood Culture - Preliminary NO GROWTH AFTER 48 HOURS 03/04/25 05:05 Blood Blood Culture - Preliminary NO GROWTH AFTER 48 HOURS Constitutional Constitutional: no acute distress, morbidly obese, chronically ill appearing and cooperative *Routine Respiratory Exam Respiratory: Present decreased breath sounds, rhonchi, normal respiratory effort and symmetric chest movement *Routine Cardiovascular Exam Cardiovascular: Present RRR *Routine Skin Exam Skin: Present normal turgor Routine Psychiatric Exam Psychiatric: Present cooperative Assessment and Plan *Assessment and plan (1) Community acquired pneumonia: Status: Acute Qualifiers: Laterality: right Lung location: lower lobe of lung Qualified Code(s): J18.9 - Pneumonia, unspecified organism Category: Medical Code(s): J18.9 - Pneumonia, unspecified organism (2) Respiratory failure with hypoxia and hypercapnia: Status: Acute Qualifiers: Chronicity: acute on chronic Qualified Code(s): J96.21 - Acute and chronic respiratory failure with hypoxia; J96.22 - Acute and chronic respiratory failure with hypercapnia Category: Medical Code(s): J96.91 - Respiratory failure, unspecified with hypoxia; J96.92 - Respiratory failure, unspecified with hypercapnia (3) Acute exacerbation of chronic obstructive airways disease: Status: Acute Category: Medical Code(s): J44.1 - Chronic obstructive pulmonary disease with (acute) exacerbation (4) Leukocytosis: Status: Acute Qualifiers: Leukocytosis type: unspecified Qualified Code(s): D72.829 - Elevated white blood cell count, unspecified Category: Medical Code(s): D72.829 - Elevated white blood cell count, unspecified (5) Elevated brain natriuretic peptide (BNP) level: Status: Acute Category: Medical Code(s): R79.89 - Other specified abnormal findings of blood chemistry (6) Cardiomegaly: Status: Acute Category: Medical Code(s): I51.7 - Cardiomegaly (7) Normocytic anemia: Status: Acute Category: Medical Code(s): D64.9 - Anemia, unspecified (8) (HFpEF) heart failure with preserved ejection fraction: Status: Acute Category: Medical Code(s): I50.30 - Unspecified diastolic (congestive) heart failure Plan 74-year-old female found to have right lower lobe pneumonia on CT imaging of chest. Evaluated by speech therapy on 03/04, no concern for aspiration on bedside eval. Location of pneumonia and recurrence however concerning for aspiration component. Blood cultures no growth today, sputum culture pending. PSI port score of 93 on admission. Pulmonology is due to evaluate the patient: Right lower lobe bacterial pneumonia Acute on chronic hypoxic and hypercapnic respiratory failure COPD exacerbation OHS/BMI 36 Pulse oximetry monitoring Oxygen therapy to maintain appropriate oxygen saturations Currently saturating appropriately on 2 L via nasal cannula NIPPV Pulmonology consult pending Blood cultures no growth to date Sputum cultures pending CT chest with Extensive recurrent right lung bronchopneumonia Trending labs and inflammatory markers Levofloxacin therapy Hyperglycemia Routine blood sugar monitoring Hemoglobin A1c 5.1% Consistent carbohydrate diet Microcytic iron deficiency anemia B12 deficiency identified Iron studies with iron saturation 10% Iron replacement therapy B12 replacement therapy Outpatient follow-up with PCP to discuss lower endoscopy Chronic HFpEF (stage C/NYHA III) Echo: EF 50% with RVSP 35 mmHg Admission BNP 3100 Loop diuretic therapy noted Beta-dana therapy Outpatient follow-up PCP for GDMT NIPPV therapy with concerns of pulmonary hypertension and hypercapnia Hypothyroid levothyroxine replacement therapy GERD Aspiration precautions Appropriate positioning before and after mealtimes PPI therapy Chronic pain syndrome Chronically prescribed opioid therapy Fall precautions DVT prophylaxis: Lovenox CODE STATUS: Full code POA: The patient is hospitalized day 2 with above diagnoses complicated by her BMI 36. We appreciate pulmonology consult evaluation and recommendations. Case management is assisting with discharge needs. Barriers to discharge currently include consulting evaluation and ongoing antibiotic therapy. Expected day of discharge 03/07/2025 pending pulmonology recommendations.
[2025-03-06] MEDS: guaiFENesin 600 MG TAB.ER.12H PO ×2 (09:13→21:11)
[2025-03-06] MEDS: PANTOPRAZOLE 40MG TABLET 40 MG PO ×2 (09:15→21:11)
[2025-03-06] MEDS: GABAPENTIN 600MG TABLET 600 MG PO ×4 (09:15→21:11)
[2025-03-06] MEDS: BISOPROLOL 5MG TABLET 5 MG PO (09:16)
[2025-03-06 11:24] LABS: RBC Morphology Normal; Total Cells Counted 100
[2025-03-06] MEDS: humaLOG 100 UNITS/ML 10ML VIAL (SSI) SUBCUT (12:03)
[2025-03-06 12:05] LABS: POC Glucose,Bedside 171 gm/dL (70-110)
[2025-03-06 16:13] LABS: POC Glucose,Bedside 154 gm/dL (70-110)
--- NOTE | 2025-03-06 16:57 | PC.NURSE ---
Pt is A&Ox4. Vital signs stable tolerating 2L NC. ACHS fsbs checked and treated with SSI per JUL. Pt complains of generalized pain. PRN pain medication given per JUL. Pt has refused repositioning in bed this shift. Pt has ambulated with stand by assistance and walker to the bathroom. Pt resting comfortably sitting up in bed with no further needs voiced at this time. Call light within reach.
[2025-03-06] MEDS: MONTELUKAST SODIUM 10MG TAB 10 MG PO (21:11)
[2025-03-06 21:25] LABS: POC Glucose,Bedside 132 gm/dL (70-110)
[2025-03-07] VITALS (9 sets, daily range): BP systolic 112–134; BP diastolic 59–83; PULSE 77–89; RESP 16–22; TEMP 36.3–36.9; O2SAT 91–97; BMI 36.1
[2025-03-07] MEDS: OXYCODONE 10MG W/APAP 325MG TABLET 1 EACH PO ×3 (05:33→20:42)
[2025-03-07 06:01] LABS: POC Glucose,Bedside 100 gm/dL (70-110)
[2025-03-07] MEDS: IPRATROPIUM/ALBUTEROL 3 ML NEB IH ×4 (06:04→22:55)
[2025-03-07] MEDS: FLUTICASONE/UMECLIDIN/VILANTER 100/62.5/25MCG INHALER 1 PUFF IH (06:04)
[2025-03-07 06:21] LABS: Hematocrit 32.1 % (37.0-47.0); Hemoglobin 8.4 g/dL (12.2-16.2); Immature Granulocytes % 1.7 %; Mean Corpuscular HGB Conc 26.2 g/dL (31.8-35.4); Mean Corpuscular Hemoglobin 21.9 pg (27.0-31.2); Mean Corpuscular Volume 83.6 fl (81-99); Nucleated Red Blood Cells % 0 %; Platelet Count 221 K/mm3 (142-424); Red Blood Count 3.84 M/mm3 (4.20-5.40); Red Cell Distribution Width-SD 55.2 fL; White Blood Count 10.8 K/mm3 (4.8-10.8)
[2025-03-07] MEDS: LEVOTHYROXINE 75MCG (0.075MG) TAB 75 MCG PO (06:24)
[2025-03-07 06:41] LABS: Chloride 97 mmol/L (98-107); Potassium 4.0 mmoL/L (3.5-5.1); Sodium 134 mmol/L (136-145)
[2025-03-07 06:44] LABS: Anion Gap 6.0 mEq/L (5-15); Blood Urea Nitrogen 26 mg/dl (7-17); Carbon Dioxide 35 mmol/L (22.0-30.0); Creatinine Clearance Estimated 55 mL/min (50-200); Creatinine,Serum 1.20 mg/dl (0.52-1.04); Estimated Glomerular Filt Rate 44 ml/min (>60); GFR (African American) 53 ML/MIN (>60)
[2025-03-07 06:45] LABS: Calcium 8.5 mg/dl (8.4-10.2); Glucose 92 mg/dl (74-100)
--- NOTE | 2025-03-07 08:27 | EXP.PN ---
Subjective *Date: 03/07/25 *Time: 14:03 Interval history: The patient is seen and evaluated today with nursing staff at bedside (Elizabet). The patient is accompanied by her . She did not get a chance to utilize NIPPV through the night. Nursing staff report that she remains afebrile with stable vital signs and saturating intermittently on 2 L of oxygen via nasal cannula. The patient reports that she normally uses 2 to 3 L at home. Her morning labs have been reviewed, discussed and I have personally interpreted her morning CBC with an improved leukocytosis WBC10.8, stable hemoglobin 8.4, stable hematocrit 32 and platelet count 221. Blood cultures continue to be negative. We discussed her hypercapnia and she is amendable to try NIPPV therapy this evening. Case management recommended ABG prior to NIPPV use and again in the a.m. The patient has identified improvement and is inquiring about discharge. Pulmonology is due to evaluate the patient. Exam Data for Last 24 hours Vital signs and Labs for Last 24 Hours: Temp Pulse Resp BP Pulse Ox O2 Del Method O2 Flow Rate 98.5 F 89 22 134/68 95 Nasal Cannula 2 03/07/25 07:34 03/07/25 07:34 03/07/25 07:34 03/07/25 07:34 03/07/25 07:34 03/07/25 07:34 03/07/25 07:34 Laboratory Results - last 24 hr 03/06/25 07:05: WBC 17.2 H, RBC 3.80 L, Hgb 8.3 L, Hct 31.3 L, MCV 82.4, MCH 21.8 L, MCHC 26.5 L, RDW 18.1 H, Plt Count 232, MPV 8.8, Neut % (Auto) 84.7 H, Lymph % (Auto) 4.4 L, [place] % (Auto) 10.0 H, Eos % (Auto) 0.0 L, Baso % (Auto) 0.1, Neut # (Auto) 14.5 H, Lymph # (Auto) 0.8, [place] # (Auto) 1.7 H, Eos # (Auto) 0.0, Baso # (Auto) 0.0, Total Counted 100, Neutrophils % (Manual) 85 H, Lymphocytes % (Manual) 4 L, Monocytes % (Manual) 11 H, Platelet Estimate Normal, RBC Morphology Normal, Sodium 135 L, Potassium 4.1, Chloride 98, Carbon Dioxide 35 H, Anion Gap 6.1, BUN 29 H D, Creatinine 1.20 H, Estimated Creat Clear 55, Estimated GFR 44 L, Est GFR ( Amer) 53 L, Glucose 91, Calcium 8.4 03/06/25 11:54: POC Glucose 171 H 03/06/25 16:01: POC Glucose 154 H 03/06/25 21:11: POC Glucose 132 H 03/07/25 05:38: POC Glucose 100 03/07/25 05:49: WBC 10.8 D, RBC 3.84 L, Hgb 8.4 L, Hct 32.1 L, MCV 83.6, MCH 21.9 L, MCHC 26.2 L, RDW 18.2 H, Plt Count 221, MPV 9.1, Neut % (Auto) 78.1, Lymph % (Auto) 7.4 L, [place] % (Auto) 12.0 H, Eos % (Auto) 0.6, Baso % (Auto) 0.2, Neut # (Auto) 8.5 H, Lymph # (Auto) 0.8, [place] # (Auto) 1.3 H, Eos # (Auto) 0.1, Baso # (Auto) 0.0, Sodium 134 L, Potassium 4.0, Chloride 97 L, Carbon Dioxide 35 H, Anion Gap 6.0, BUN 26 H, Creatinine 1.20 H, Estimated Creat Clear 55, Estimated GFR 44 L, Est GFR ( Amer) 53 L, Glucose 92, Calcium 8.5 I & O for Last 24 hours: Intake & Output 03/04/25 03/05/25 03/06/25 03/07/25 23:59 23:59 23:59 23:59 Intake Total 1050 / 1050 590 / 590 1200 / 1200 Output Total 1550 / 1550 950 / 1350 900 / 900 Balance -500 / -500 -360 / -760 300 / 300 Weight 82.299 kg 81.465 kg 83.121 kg 83.461 kg Microbiology Reports for the Last 24 Hours: Microbiology 03/05/25 11:30 Sputum - Expectorated Sputum Gram Stain - Final 03/05/25 11:30 Sputum - Expectorated Sputum Sputum Culture - Final No growth. 03/04/25 05:05 Blood Blood Culture - Preliminary NO GROWTH AFTER 48 HOURS 03/04/25 05:05 Blood Blood Culture - Preliminary NO GROWTH AFTER 48 HOURS Constitutional Constitutional: no acute distress, morbidly obese, chronically ill appearing and cooperative *Routine Respiratory Exam Respiratory: Present decreased breath sounds, rhonchi, normal respiratory effort and symmetric chest movement *Routine Cardiovascular Exam Cardiovascular: Present RRR *Routine Skin Exam Skin: Present normal turgor Routine Psychiatric Exam Psychiatric: Present cooperative Assessment and Plan *Assessment and plan (1) Community acquired pneumonia: Status: Acute Qualifiers: Laterality: right Lung location: lower lobe of lung Qualified Code(s): J18.9 - Pneumonia, unspecified organism Category: Medical Code(s): J18.9 - Pneumonia, unspecified organism (2) Respiratory failure with hypoxia and hypercapnia: Status: Acute Qualifiers: Chronicity: acute on chronic Qualified Code(s): J96.21 - Acute and chronic respiratory failure with hypoxia; J96.22 - Acute and chronic respiratory failure with hypercapnia Category: Medical Code(s): J96.91 - Respiratory failure, unspecified with hypoxia; J96.92 - Respiratory failure, unspecified with hypercapnia (3) Acute exacerbation of chronic obstructive airways disease: Status: Acute Category: Medical Code(s): J44.1 - Chronic obstructive pulmonary disease with (acute) exacerbation (4) Leukocytosis: Status: Acute Qualifiers: Leukocytosis type: unspecified Qualified Code(s): D72.829 - Elevated white blood cell count, unspecified Category: Medical Code(s): D72.829 - Elevated white blood cell count, unspecified (5) Elevated brain natriuretic peptide (BNP) level: Status: Acute Category: Medical Code(s): R79.89 - Other specified abnormal findings of blood chemistry (6) Cardiomegaly: Status: Acute Category: Medical Code(s): I51.7 - Cardiomegaly (7) Normocytic anemia: Status: Acute Category: Medical Code(s): D64.9 - Anemia, unspecified (8) (HFpEF) heart failure with preserved ejection fraction: Status: Acute Category: Medical Code(s): I50.30 - Unspecified diastolic (congestive) heart failure Plan 74-year-old female found to have right lower lobe pneumonia on CT imaging of chest. Evaluated by speech therapy on 03/04, with no concern for aspiration on bedside evaluation. Location of pneumonia and recurrence however concerning for aspiration component. Blood cultures no growth to date, sputum culture pending. PSI port score of 93 on admission. Pulmonology is due to evaluate the patient: Right lower lobe bacterial pneumonia Acute on chronic hypoxic and hypercapnic respiratory failure COPD exacerbation OHS/BMI 36 Pulse oximetry monitoring Oxygen therapy to maintain appropriate oxygen saturations Currently saturating appropriately on 2 L via nasal cannula Admission VBG with pCO2=62.9 NIPPV Pulmonology consult pending Blood cultures no growth to date Sputum cultures pending CT chest with Extensive recurrent right lung bronchopneumonia Trending labs and inflammatory markers Levofloxacin therapy Hyperglycemia Routine blood sugar monitoring Hemoglobin A1c 5.1% Consistent carbohydrate diet Microcytic iron deficiency anemia B12 deficiency identified Iron studies with iron saturation 10% Iron replacement therapy B12 replacement therapy Outpatient follow-up with PCP to discuss lower endoscopy Chronic HFpEF (stage C/NYHA III) Echo: EF 50% with RVSP 35 mmHg Admission BNP 3100 Loop diuretic therapy noted Beta-dana therapy Outpatient follow-up PCP for GDMT NIPPV therapy with concerns of pulmonary hypertension and hypercapnia Hypothyroid levothyroxine replacement therapy GERD Aspiration precautions Appropriate positioning before and after mealtimes PPI therapy Chronic pain syndrome Chronically prescribed opioid therapy Fall precautions DVT prophylaxis: Lovenox CODE STATUS: Full code POA: The patient is hospitalized day 3 with above diagnoses complicated by her BMI 36. We appreciate pulmonology consult evaluation and recommendations. Case management is assisting with discharge needs. Barriers to discharge currently include consulting evaluation and ongoing antibiotic therapy. Expected day of discharge 03/08/2025 pending pulmonology recommendations.
[2025-03-07] MEDS: PANTOPRAZOLE 40MG TABLET 40 MG PO ×2 (08:48→20:42)
[2025-03-07] MEDS: GABAPENTIN 600MG TABLET 600 MG PO ×4 (08:48→20:42)
[2025-03-07] MEDS: guaiFENesin 600 MG TAB.ER.12H PO ×2 (08:48→20:42)
[2025-03-07] MEDS: BISOPROLOL 5MG TABLET 5 MG PO (08:48)
--- NOTE | 2025-03-07 09:37 | EXP.PULM.CON ---
History of Present Illness History of present illness: Ms. Moran is a 74-year-old female greater than 14-gohl-ncvs smoking used to smoke 2 packs a day stopped smoking around 2013, history of COPD and asthma recurrent bronchitis hypothyroidism chronic hypoxic respiratory failure presented with worsening respiratory distress increasing oxygen requirements and pulmonary was called for further evaluation and management. [facility] Disclaimer: The information contained in this section may have been updated after the patient was seen, as this information can be updated by other users. Medical History (Updated 03/07/25 @ 11:31 by Gibson Pantoja MD) Pneumonia Hx of myocardial infarction GERD (gastroesophageal reflux disease) HTN (hypertension) Hypothyroid COPD (chronic obstructive pulmonary disease) Asthma Surgical History (Updated 03/04/25 @ 08:55 by Elizabet Khan RN) History of appendectomy History of cholecystectomy History of total left knee replacement H/O: hysterectomy Social History (Updated 03/04/25 @ 08:27 by Elizabet Khan RN) Smoking Status: Never smoker alcohol intake: never current occupational status: retired Travel in the last 8 weeks?: None Contact w/someone who lives/traveled outside [place] past 30 days?: No Exposure to someone with infectious disease in past 14 days?: No Do you have a fever (greater than 100.4 F or 38 C)?: No Have you tested positive for COVID-19?: No Exposed to someone with COVID-19 in past 14 days?: No Do you have a sore throat?: No Do you have a cough?: Yes Do you have any weakness?: No Are you experiencing any nausea/vomitting?: No Do you have any diarrhea?: No Are you experiencing any unusual bleeding?: No Do you have any muscle aches/pain?: No Do you have any abdominal pain?: No Are you experiencing loss of taste or smell?: No Review of Systems Constitutional Constitutional: Reports anorexia, Reports body ache(s) and Reports fatigue Eyes Eyes: Denies eye discharge, Denies dry eyes, Denies irritation and Denies itchy eyes ENT Ears, Nose, Mouth, and Throat: Denies epistaxis, Denies facial pain, Denies lip swelling and Denies throat swelling *Cardiovascular Cardiovascular: Reports dyspnea and Reports dyspnea on exertion *Respiratory Respiratory: Denies change in phlegm color, Reports chest congestion, Reports cough, Reports dyspnea, Reports dyspnea on exertion, Reports excessive phlegm production, Denies hemoptysis, Denies pain on inspiration, Denies pain with cough and Reports wheezing *Gastrointestinal Gastrointestinal: Denies abdominal pain, Denies belching and Denies cramping *Musculoskeletal Musculoskeletal: Reports back pain, Reports myalgias and Reports other (No small joint swelling or Pain) *Neurologic Neurologic: Reports system reviewed and no additional complaints, except as documented Psychiatric Psychiatric: Denies homicidal ideation and Denies suicidal ideation Endocrine Endocrine: Reports fatigue and Denies heat intolerance Hematologic/Lymphatic Hematologic/Lymphatic: Denies easy bleeding and Denies lymphadenopathy Allergic/Immunologic Allergic/Immunologic: Denies itchy eyes, Denies lip swelling, Denies throat swelling and Reports wheezing Pulmonology Exam Inpatient Vital signs and Labs for Last 24 Hours: Temp Pulse Resp BP Pulse Ox O2 Del Method O2 Flow Rate 98.5 F 89 22 134/68 95 Nasal Cannula 2 03/07/25 07:34 03/07/25 07:34 03/07/25 07:34 03/07/25 07:34 03/07/25 07:34 03/07/25 09:06 03/07/25 09:06 Laboratory Results - last 24 hr 03/06/25 07:05: Total Counted 100, Neutrophils % (Manual) 85 H, Lymphocytes % (Manual) 4 L, Monocytes % (Manual) 11 H, Platelet Estimate Normal, RBC Morphology Normal 03/06/25 11:54: POC Glucose 171 H 03/06/25 16:01: POC Glucose 154 H 03/06/25 21:11: POC Glucose 132 H 03/07/25 05:38: POC Glucose 100 03/07/25 05:49: WBC 10.8 D, RBC 3.84 L, Hgb 8.4 L, Hct 32.1 L, MCV 83.6, MCH 21.9 L, MCHC 26.2 L, RDW 18.2 H, Plt Count 221, MPV 9.1, Neut % (Auto) 78.1, Lymph % (Auto) 7.4 L, [place] % (Auto) 12.0 H, Eos % (Auto) 0.6, Baso % (Auto) 0.2, Neut # (Auto) 8.5 H, Lymph # (Auto) 0.8, [place] # (Auto) 1.3 H, Eos # (Auto) 0.1, Baso # (Auto) 0.0, Sodium 134 L, Potassium 4.0, Chloride 97 L, Carbon Dioxide 35 H, Anion Gap 6.0, BUN 26 H, Creatinine 1.20 H, Estimated Creat Clear 55, Estimated GFR 44 L, Est GFR ( Amer) 53 L, Glucose 92, Calcium 8.5 I & O for Labs for Last 24 Hours: Intake & Output 03/04/25 03/05/25 03/06/25 03/07/25 23:59 23:59 23:59 23:59 Intake Total 1050 / 1050 590 / 590 1200 / 1200 120 / 120 Output Total 1550 / 1550 950 / 1350 900 / 900 Balance -500 / -500 -360 / -760 300 / 300 120 / 120 Weight 181 lb 7 oz 179 lb 9.6 oz 183 lb 4 oz 184 lb Microbiology Reports for the Last 24 Hours: Microbiology 03/05/25 11:30 Sputum - Expectorated Sputum Gram Stain - Final 03/05/25 11:30 Sputum - Expectorated Sputum Sputum Culture - Preliminary Constitutional: Present mild distress Head: Present normocephalic and atraumatic ENT: Present normal exam, normal oropharynx and mucous membranes moist Neck: Present normal inspection and full ROM Respiratory: Present normal respiratory effort and able to speak in complete sentences; Absent respiratory distress or wheezes Cardiac: Present S1/S2, Tachycardia and radial pulses present GI: Present soft and distention; Absent tenderness or guarding Rectal (female): Present deferred (female): Present deferred Skin: Present intact; Absent cyanosis or jaundice Neuro: Present alert, awake and oriented x 3 Extremities: Present normal inspection; Absent clubbing or cyanosis Psychiatric: Present normal affect and cooperative Meds Home Medications and Allergies Home Medications ?Medication ?Instructions ?Recorded ?Confirmed ?Type albuterol sulfate 90 mcg/actuation 2 puff inhalation Q6HP PRN 03/04/25 03/04/25 History aerosol inhaler Shortness Of Breath bisoprolol fumarate 5 mg tablet 5 mg PO DAILY 03/04/25 03/04/25 History celecoxib 200 mg capsule 200 mg PO BID 03/04/25 03/04/25 History fluticasone fur. 100 mcg-umeclid 1 inh inhalation DAILY 03/04/25 03/04/25 History 62.5 mcg-vilant 25 mcg inhalat.powder (Trelegy Ellipta) gabapentin 600 mg tablet 600 mg PO QID 03/04/25 03/04/25 History levothyroxine 75 mcg tablet 75 mcg PO DAILY 03/04/25 03/04/25 History oxycodone-acetaminophen 10 mg-325 1 tab PO Q6HP PRN Moderate Pain 03/04/25 03/04/25 History mg tablet (Scale Score 5-6) pantoprazole 40 mg tablet,delayed 40 mg PO BID 03/04/25 03/04/25 History release New Prescriptions to Start Prescriptions: Allergies Allergy/AdvReac Type Severity Reaction Status Date / Time Penicillins Allergy Unknown Verified 07/06/24 14:12 allergy reaction Results Laboratory Findings 03/07/25 05:49 03/07/25 05:49 PT/INR, D-dimer PT 11.1 seconds (10.1-12.5) 03/04/25 04:30 INR 1.00 (0.9-1.1) 03/04/25 04:30 Abnormal lab findings: Abnormal Labs 03/04/25 03/05/25 03/05/25 04:30 06:17 10:47 WBC 22.4 H* 21.7 H* RBC 4.09 L 3.71 L Hgb 9.3 L 8.3 L Hct 33.5 L 30.1 L MCH 22.7 L 22.4 L MCHC 27.8 L 27.6 L RDW 18.5 H 18.3 H Neut % (Auto) 85.4 H 94.3 H Lymph % (Auto) 1.5 L 1.5 L [place] % (Auto) 10.9 H Eos % (Auto) 0.0 L Neut # (Auto) 19.1 H 20.4 H Lymph # (Auto) 0.3 L 0.3 L [place] # (Auto) 2.4 H Neutrophils % (Manual) 91 H 96 H Lymphocytes % (Manual) 7 L 2 L Monocytes % (Manual) VBG pCO2 61.9 H VBG pO2 62.9 H VBG HCO3 31.1 H VBG Total CO2 33.0 H VBG O2 Saturation 91.8 H VBG Base Excess 5.0 H Sodium 134 L 133 L Chloride 96 L Carbon Dioxide 34 H 34 H BUN 23 H D Creatinine 1.10 H Estimated GFR 54 L 49 L Est GFR ( Amer) Glucose 127 H 186 H POC Glucose 184 H Iron 36 L Iron Saturation 10.63492 L AST 39 H NT-Pro-B Natriuret Pep 3160 H Albumin 3.4 L Vitamin B12 202 L 03/05/25 03/06/25 03/06/25 16:17 07:05 11:54 WBC 17.2 H RBC 3.80 L Hgb 8.3 L Hct 31.3 L MCH 21.8 L MCHC 26.5 L RDW 18.1 H Neut % (Auto) 84.7 H Lymph % (Auto) 4.4 L [place] % (Auto) 10.0 H Eos % (Auto) 0.0 L Neut # (Auto) 14.5 H Lymph # (Auto) [place] # (Auto) 1.7 H Neutrophils % (Manual) 85 H Lymphocytes % (Manual) 4 L Monocytes % (Manual) 11 H VBG pCO2 VBG pO2 VBG HCO3 VBG Total CO2 VBG O2 Saturation VBG Base Excess Sodium 135 L Chloride Carbon Dioxide 35 H BUN 29 H D Creatinine 1.20 H Estimated GFR 44 L Est GFR ( Amer) 53 L Glucose POC Glucose 206 H 171 H Iron Iron Saturation AST NT-Pro-B Natriuret Pep Albumin Vitamin B12 03/06/25 03/06/25 03/07/25 16:01 21:11 05:49 WBC RBC 3.84 L Hgb 8.4 L Hct 32.1 L MCH 21.9 L MCHC 26.2 L RDW 18.2 H Neut % (Auto) Lymph % (Auto) 7.4 L [place] % (Auto) 12.0 H Eos % (Auto) Neut # (Auto) 8.5 H Lymph # (Auto) [place] # (Auto) 1.3 H Neutrophils % (Manual) Lymphocytes % (Manual) Monocytes % (Manual) VBG pCO2 VBG pO2 VBG HCO3 VBG Total CO2 VBG O2 Saturation VBG Base Excess Sodium 134 L Chloride 97 L Carbon Dioxide 35 H BUN 26 H Creatinine 1.20 H Estimated GFR 44 L Est GFR ( Amer) 53 L Glucose POC Glucose 154 H 132 H Iron Iron Saturation AST NT-Pro-B Natriuret Pep Albumin Vitamin B12 Assessment and Plan *Assessment and plan (1) Respiratory failure with hypoxia and hypercapnia: Status: Acute Qualifiers: Chronicity: acute on chronic Qualified Code(s): J96.21 - Acute and chronic respiratory failure with hypoxia; J96.22 - Acute and chronic respiratory failure with hypercapnia Category: Medical Code(s): J96.91 - Respiratory failure, unspecified with hypoxia; J96.92 - Respiratory failure, unspecified with hypercapnia (2) Pneumonia: Status: Acute Category: Medical Code(s): J18.9 - Pneumonia, unspecified organism Plan Ms. Moran is a 74-year-old female greater than 18-rroo-fnnw smoking used to smoke 2 packs a day stopped smoking around 2013, history of COPD and asthma recurrent bronchitis hypothyroidism chronic hypoxic respiratory failure presented with worsening respiratory distress increasing oxygen requirements and pulmonary was called for further evaluation and management. Neutrophilic predominant leukocytosis upon admission improving. Blood gas upon admission mild hypercarbic respiratory failure. No hypoxia noted with a PaO2 of 62.9 on VBG. Comprehensive respiratory viral PCR panel negative. CT chest upon admission prominent right-sided airspace disease, right upper lobe and lower lobe patchy infiltrates. CT chest from June also showed prominent right-sided minimal patchy infiltrates. Also lymphadenopathy noted. No recent prior sputum cultures. Currently receiving levofloxacin. on examination minimal respiratory distress. No significant wheezing. Prelim sputum cultures gram-positive cocci few Plan: Continue oxygen supplementation on as-needed basis to maintain O2 saturation goal 90% and about this morning on room air saturating 94%. Continue Trelegy 100 inhaler along with DuoNebs 4 times daily as needed Continue levofloxacin for a total of 5 days Incentive spirometry and flutter valve Obtain sputum sample for AFB culture sensitivity Further concerning recurrent right sided infiltrates/recurrent pneumonia in setting of known risk for aspiration will consider bronchoscopy airway examination as an outpatient basis.. Will also obtain AFB sputum samples prior to
--- NOTE | 2025-03-07 11:45 | HMH.PHAAMS2 ---
- Antimicrobial Stewardship Review 48 hour timeout review Stewardship interventions: 48 hour timeout review, reviewed - no change Comments: empiric therapy for pneumonia, no c&s results back at this time
[2025-03-07 11:56] LABS: POC Glucose,Bedside 105 gm/dL (70-110)
--- OUTSIDE RECORDS SUMMARY | 2025-03-07 12:58 | XMS_ITS | Clinical Summary ---
Author Organization [facility] Address [address] [place] [address] Phone Care Team Providers Care Director Of Contracts Name Role Phone Viv CORONADO, Gamaliel Munoz [phone] Conditions or Problems Problem Name Problem Code Onset Date Status Entry Date Provider Comment Standard Description Annotate AFTERCARE FOLLOWING SURGERY OF THE NERVOUS SYSTEM, NEC 423285066 (SNOMED CT) 12/24 Active 12/24 Clemente Pryor CONCRETE POURER Surgical follow-up OVERWEIGHT [id number] (SNOMED CT) 12/24 Active 12/24 Clemente Pryor CONCRETE POURER Overweight BACK PAIN, LUMBAR, WITH RADICULOPATHY [id number] (SNOMED CT) 12/09 Active 12/16 Adamarisdelilah Nopohl Lumbar radiculopathy PREOP EXAM [id number] (SNOMED CT) 11/16 Active 11/16 Rachael Patel Pre-surgery evaluation BACK PAIN, LUMBAR [id number] (SNOMED CT) Active Tyrell Echavarria MD Low back pain Medications Medication Instructions Start Date Stop Date Generic Name [facility] Provider CYCLOBENZAPRINE HCL 10 MG TABS Take 1 tab TID 12/08 CYCLOBENZAPRINE HCL 41265026924 Gamaliel Nam MD OXYCODONE HCL 5 MG TABS 1 to 2 every 4-6 hours as needed for pain 12/08 OXYCODONE HCL [id number] Gamaliel Nam MD HIBICLENS 4 % EXTERNAL LIQUID wash with half solution 2 nights prior to surgery. Wash with half solution night prior to surgery 11/16 CHLORHEXIDINE GLUCONATE [id number] Gamaliel Nam MD CELEBREX CAPS Non-[place] 11/16 CELECOXIB CAPS [id number] Rachael Patel VITAMIN D3 CAPS Non-11/16 CHOLECALCIFEROL CAPS [id number] Rachael Patel POTASSIUM CHLORIDE JUSTINO ER CR-TABS 11/16 POTASSIUM CHLORIDE JUSTINO ER CR-TABS [id number] Rachael Patel FUROSEMIDE TABS 11/16 FUROSEMIDE TABS [id number] Rachael Patel HYDROCHLOROTHIAZIDE CAPS 11/16 HYDROCHLOROTHIAZIDE CAPS [id number] Rachael Patel SYNTHROID TABS 11/16 LEVOTHYROXINE SODIUM TABS 53488376896 Rachael Patel GABAPENTIN 300 MG/6ML SOLN 11/16 GABAPENTIN 92995930725 Rachael Patel VENTOLIN HFA 108 (90 Base) MCG/ACT AERS 11/16 ALBUTEROL SULFATE [id number] Rachael Patel TRELEGY ELLIPTA 100-62.5-25 MCG/ACT AEPB 11/16 FLUTICASONE-UMECLID IN-VILANT [id number] Rachael Patel PROAIR HFA 108 (90 BASE) MCG/ACT INHALATION AEROSOL SOLUTION 11/16 ALBUTEROL SULFATE 15740085019 Rachael Patel IBUPROFEN TABS 11/16 IBUPROFEN TABS 74002512917 Rachael Patel CLINDAMYCIN HCL 300 MG CAPS 11/16 CLINDAMYCIN HCL 60041385905 Rachael Patel NORCO TABLET 11/16 HYDROCODONE-ACETAMI NOPHEN TABS 36480352716 Rachael Patel METHOCARBAMOL 750 MG TABS -11/16 METHOCARBAMOL 99597156761 Rachael Patel PROAIR HFA AEROSOL SOLUTION -11/16 ALBUTEROL SULFATE AERS 82245010927 Rachael Patel VICODIN 5-500 MG TABS -11/16 HYDROCODONE-ACETAMI NOPHEN 29644432328 Rachael Patel SYNTHROID 75 MCG TABS -11/16 LEVOTHYROXINE SODIUM 25474203583 Rachael Patel METHOCARBAMOL 750 MG TABS -[place] 11/16 METHOCARBAMOL [id number] Tyrell Echavarria MD PROAIR HFA AEROSOL SOLUTION -11/16 ALBUTEROL SULFATE AERS [id number] Tyrell Echavarria MD VICODIN 5-500 MG TABS -11/16 HYDROCODONE-ACETAMI NOPHEN [id number] Tyrell Echavarria MD SYNTHROID 75 MCG TABS -11/16 LEVOTHYROXINE SODIUM [id number] Tyrell Echavarria MD Medications Administered No information [...]
--- NOTE | 2025-03-07 13:10 | PC.NURSE ---
Patient oxygen saturation dropped to 83% on room air at rest
[2025-03-07 14:47] LABS: ABG HCO3 30.9 mmhg (22.0-26.0); ABG PH 7.35 mmol/L (7.35-7.45); ABG PO2 53.1 mmhg (80-100); ABG TCO2 32.7 mmhg (23-27)
[2025-03-07 14:48] LABS: Source Right Radial
[2025-03-07 14:50] LABS: ABG PCO2 57.4 mmhg (35.0-45.0)
[2025-03-07 16:07] LABS: POC Glucose,Bedside 175 gm/dL (70-110)
[2025-03-07 16:07] LABS: POC Glucose,Bedside 120 gm/dL (70-110)
[2025-03-07 16:30] LABS: POC Glucose,Bedside 114 gm/dL (70-110)
[2025-03-07] MEDS: MONTELUKAST SODIUM 10MG TAB 10 MG PO (20:42)
--- NOTE | 2025-03-07 20:51 | PC.NURSE ---
RESP CARE NOTE: Per Dr. Pantoja pt does not need to wear bipap tonight due to blood gases not warranting it
--- NOTE | 2025-03-07 21:00 | PC.NURSE ---
I texted doctor jorge about bipap but he did not want it on patient because vbg didnt warrent it.
[2025-03-08 04:00] VITALS: BP 138/64; PULSE 81; RESP 16; TEMP 36.4; O2SAT 94; BMI 35.7
[2025-03-08] MEDS: LEVOTHYROXINE 75MCG (0.075MG) TAB 75 MCG PO (05:48)
[2025-03-08 06:07] LABS: Hematocrit 31.7 % (37.0-47.0); Hemoglobin 8.5 g/dL (12.2-16.2); Immature Granulocytes % 2.1 %; Mean Corpuscular HGB Conc 26.8 g/dL (31.8-35.4); Mean Corpuscular Hemoglobin 22.0 pg (27.0-31.2); Mean Corpuscular Volume 82.1 fl (81-99); Nucleated Red Blood Cells % 0 %; Platelet Count 212 K/mm3 (142-424); Red Blood Count 3.86 M/mm3 (4.20-5.40); Red Cell Distribution Width-SD 55.3 fL; White Blood Count 9.0 K/mm3 (4.8-10.8)
[2025-03-08 06:19] LABS: Anion Gap 7.0 mEq/L (5-15); Blood Urea Nitrogen 21 mg/dl (7-17); Calcium 8.8 mg/dl (8.4-10.2); Carbon Dioxide 33 mmol/L (22.0-30.0); Chloride 100 mmol/L (98-107); Creatinine Clearance Estimated 54 mL/min (50-200); Creatinine,Serum 1.20 mg/dl (0.52-1.04); Estimated Glomerular Filt Rate 44 ml/min (>60); GFR (African American) 53 ML/MIN (>60); Glucose 94 mg/dl (74-100); Potassium 4.0 mmoL/L (3.5-5.1); Sodium 136 mmol/L (136-145)
[2025-03-08] MEDS: IPRATROPIUM/ALBUTEROL 3 ML NEB IH ×2 (06:27→11:52)
[2025-03-08] MEDS: FLUTICASONE/UMECLIDIN/VILANTER 100/62.5/25MCG INHALER 1 PUFF IH (06:27)
[2025-03-08 06:28] VITALS: PULSE 74; PULSE 78; O2SAT 96
[2025-03-08 06:29] LABS: ABG HCO3 32.5 mmhg (22.0-26.0); ABG PH 7.37 mmol/L (7.35-7.45); ABG PO2 73.9 mmhg (80-100); ABG TCO2 34.2 mmhg (23-27)
[2025-03-08 06:34] LABS: Source R RADIAL
[2025-03-08 06:36] LABS: ABG PCO2 57.1 mmhg (35.0-45.0)
--- NOTE | 2025-03-08 06:41 | PC.NURSE ---
rt called with a co2 of 57.1, notified nurse prac dionne.
[2025-03-08 07:32] VITALS: BP 148/74; PULSE 85; RESP 16; TEMP 37.1; O2SAT 94
[2025-03-08] MEDS: BISOPROLOL 5MG TABLET 5 MG PO (08:19)
[2025-03-08] MEDS: guaiFENesin 600 MG TAB.ER.12H PO (08:19)
[2025-03-08] MEDS: PANTOPRAZOLE 40MG TABLET 40 MG PO (08:19)
[2025-03-08] MEDS: GABAPENTIN 600MG TABLET 600 MG PO (08:19)
[2025-03-08] MEDS: OXYCODONE 10MG W/APAP 325MG TABLET 1 EACH PO (08:28)
--- NOTE | 2025-03-08 08:37 | EXP.PHA.PN ---
Subjective *Date: 03/08/25 *Time: 08:37 Medical Exam Vital signs and Labs for Last 24 Hours: Vital Signs Temp Pulse Pulse Resp BP Pulse Ox O2 Del Method 03/08/25 07:32 98.8 F 85 16 148/74 H 94 L Nasal Cannula 03/08/25 06:28 74 03/08/25 06:28 78 03/08/25 06:28 96 Nasal Cannula 03/08/25 06:15 Nasal Cannula 03/08/25 05:00 Nasal Cannula 03/08/25 04:00 97.5 F L 81 16 138/64 94 L Nasal Cannula 03/08/25 03:00 Nasal Cannula 03/08/25 01:00 Nasal Cannula 03/07/25 23:11 77 03/07/25 23:11 86 03/07/25 23:00 Room Air 03/07/25 21:00 Room Air 03/07/25 20:00 Nasal Cannula 03/07/25 20:00 98.2 F 85 18 133/83 91 L Nasal Cannula 03/07/25 18:49 Nasal Cannula 03/07/25 18:48 81 03/07/25 18:47 82 03/07/25 18:46 Nasal Cannula 03/07/25 17:00 Nasal Cannula 03/07/25 16:00 98.3 F 82 22 133/76 91 L Nasal Cannula 03/07/25 15:00 Nasal Cannula 03/07/25 13:09 Nasal Cannula 03/07/25 11:20 85 03/07/25 11:20 85 03/07/25 11:20 93 L Nasal Cannula 03/07/25 11:05 Nasal Cannula 03/07/25 09:06 Nasal Cannula 03/07/25 08:40 Nasal Cannula O2 Flow Rate 03/08/25 07:32 1 03/08/25 06:28 03/08/25 06:28 03/08/25 06:28 1 03/08/25 06:15 1 03/08/25 05:00 1 03/08/25 04:00 1 03/08/25 03:00 1 03/08/25 01:00 1 03/07/25 23:11 03/07/25 23:11 03/07/25 23:00 03/07/25 21:00 03/07/25 20:00 1 03/07/25 20:00 1 03/07/25 18:49 1 03/07/25 18:48 03/07/25 18:47 03/07/25 18:46 1 03/07/25 17:00 1 03/07/25 16:00 1 03/07/25 15:00 1 03/07/25 13:09 1 03/07/25 11:20 03/07/25 11:20 03/07/25 11:20 1 03/07/25 11:05 1 03/07/25 09:06 2 03/07/25 08:40 2 Intake and Output 03/07/25 03/08/25 03/08/25 23:59 07:59 15:59 Intake Total 260 / 595 Output Total 0 / 0 0 / 0 Balance 260 / 595 0 / 0 Intake: Intake, Oral Amount 260 / 595 Output: Output, Urine Amount 0 / 0 0 / 0 Other: Number of Unmeasured Voids 1 1 Number of Bowel Movements 1 Weight 82.554 kg Patient Weight 03/08/25 23:59 Weight 82.554 kg Laboratory Results - last 24 hr 03/05/25 20:30: POC Glucose 175 H 03/06/25 06:11: POC Glucose 120 H 03/07/25 11:47: POC Glucose 105 03/07/25 14:40: Specimen Source Right radial, O2 % Ra, ABG pH 7.35, ABG pCO2 57.4 H, ABG pO2 53.1 L, ABG HCO3 30.9 H, ABG Total CO2 32.7 H, ABG O2 Saturation 87 L*, ABG Base Excess 5.3 H, Jan Test Acceptable 03/07/25 16:14: POC Glucose 114 H 03/08/25 05:31: WBC 9.0, RBC 3.86 L, Hgb 8.5 L, Hct 31.7 L, MCV 82.1, MCH 22.0 L, MCHC 26.8 L, RDW 18.3 H, Plt Count 212, MPV 8.8, Neut % (Auto) 75.6, Lymph % (Auto) 7.1 L, [place] % (Auto) 13.1 H, Eos % (Auto) 1.9, Baso % (Auto) 0.2, Neut # (Auto) 6.8, Lymph # (Auto) 0.6 L, [place] # (Auto) 1.2 H, Eos # (Auto) 0.2, Baso # (Auto) 0.0, Sodium 136, Potassium 4.0, Chloride 100, Carbon Dioxide 33 H, Anion Gap 7.0, BUN 21 H, Creatinine 1.20 H, Estimated Creat Clear 54, Estimated GFR 44 L, Est GFR ( Amer) 53 L, Glucose 94, Calcium 8.8 03/08/25 06:00: Specimen Source R radial, O2 % 1lpm, ABG pH 7.37, ABG pCO2 57.1 H, ABG pO2 73.9 L, ABG HCO3 32.5 H, ABG Total CO2 34.2 H, ABG O2 Saturation 94, ABG Base Excess 7.3 H, Jan Test Acceptable I & O for Labs for Last 24 Hours: Intake & Output 03/05/25 03/06/25 03/07/25 03/08/25 23:59 23:59 23:59 23:59 Intake Total 590 / 590 1200 / 1200 595 / 595 Output Total 950 / 1350 900 / 900 0 / 0 0 / 0 Balance -360 / -760 300 / 300 595 / 595 0 / 0 Weight 81.465 kg 83.121 kg 83.461 kg 82.554 kg Microbiology Reports for the Last 24 Hours: Microbiology 03/05/25 11:30 Sputum - Expectorated Sputum Gram Stain - Final 03/05/25 11:30 Sputum - Expectorated Sputum Sputum Culture - Preliminary Gram Positive Cocci 03/04/25 05:05 Blood Blood Culture - Preliminary NO GROWTH AFTER 4 DAYS 03/04/25 05:05 Blood Blood Culture - Preliminary NO GROWTH AFTER 4 DAYS The patient's infection will respond to the chosen ABx?: Yes (SPUTUM CX PENDING/GRAM POS COCCI, AFEBRILE OVER 24 HR, WBC 9.0) Is the patient receiving the right drug, dose, and route?: Yes Could a more targeted ABx be ordered?: No How long ABx needed (days)?: 5 (PNEUMONIA)
--- NOTE | 2025-03-08 09:34 | EXP.PULM.PN ---
Subjective *Date: 03/08/25 *Time: 11:51 Interval history: No acute respiratory vents overnight. Pulmonology Exam Inpatient Vital signs and Labs for Last 24 Hours: Temp Pulse Resp BP Pulse Ox O2 Del Method O2 Flow Rate 98.8 F 85 16 148/74 H 94 L Nasal Cannula 1 03/08/25 07:32 03/08/25 07:32 03/08/25 07:32 03/08/25 07:32 03/08/25 07:32 03/08/25 07:32 03/08/25 07:32 Laboratory Results - last 24 hr 03/05/25 20:30: POC Glucose 175 H 03/06/25 06:11: POC Glucose 120 H 03/07/25 11:47: POC Glucose 105 03/07/25 14:40: Specimen Source Right radial, O2 % Ra, ABG pH 7.35, ABG pCO2 57.4 H, ABG pO2 53.1 L, ABG HCO3 30.9 H, ABG Total CO2 32.7 H, ABG O2 Saturation 87 L*, ABG Base Excess 5.3 H, Jan Test Acceptable 03/07/25 16:14: POC Glucose 114 H 03/08/25 05:31: WBC 9.0, RBC 3.86 L, Hgb 8.5 L, Hct 31.7 L, MCV 82.1, MCH 22.0 L, MCHC 26.8 L, RDW 18.3 H, Plt Count 212, MPV 8.8, Neut % (Auto) 75.6, Lymph % (Auto) 7.1 L, [place] % (Auto) 13.1 H, Eos % (Auto) 1.9, Baso % (Auto) 0.2, Neut # (Auto) 6.8, Lymph # (Auto) 0.6 L, [place] # (Auto) 1.2 H, Eos # (Auto) 0.2, Baso # (Auto) 0.0, Sodium 136, Potassium 4.0, Chloride 100, Carbon Dioxide 33 H, Anion Gap 7.0, BUN 21 H, Creatinine 1.20 H, Estimated Creat Clear 54, Estimated GFR 44 L, Est GFR ( Amer) 53 L, Glucose 94, Calcium 8.8 03/08/25 06:00: Specimen Source R radial, O2 % 1lpm, ABG pH 7.37, ABG pCO2 57.1 H, ABG pO2 73.9 L, ABG HCO3 32.5 H, ABG Total CO2 34.2 H, ABG O2 Saturation 94, ABG Base Excess 7.3 H, Jan Test Acceptable Temp Pulse Resp BP Pulse Ox O2 Del Method O2 Flow Rate 98.5 F 89 22 134/68 95 Nasal Cannula 2 03/07/25 07:34 03/07/25 07:34 03/07/25 07:34 03/07/25 07:34 03/07/25 07:34 03/07/25 09:06 03/07/25 09:06 Laboratory Results - last 24 hr 03/06/25 07:05: Total Counted 100, Neutrophils % (Manual) 85 H, Lymphocytes % (Manual) 4 L, Monocytes % (Manual) 11 H, Platelet Estimate Normal, RBC Morphology Normal 03/06/25 11:54: POC Glucose 171 H 03/06/25 16:01: POC Glucose 154 H 03/06/25 21:11: POC Glucose 132 H 03/07/25 05:38: POC Glucose 100 03/07/25 05:49: WBC 10.8 D, RBC 3.84 L, Hgb 8.4 L, Hct 32.1 L, MCV 83.6, MCH 21.9 L, MCHC 26.2 L, RDW 18.2 H, Plt Count 221, MPV 9.1, Neut % (Auto) 78.1, Lymph % (Auto) 7.4 L, [place] % (Auto) 12.0 H, Eos % (Auto) 0.6, Baso % (Auto) 0.2, Neut # (Auto) 8.5 H, Lymph # (Auto) 0.8, [place] # (Auto) 1.3 H, Eos # (Auto) 0.1, Baso # (Auto) 0.0, Sodium 134 L, Potassium 4.0, Chloride 97 L, Carbon Dioxide 35 H, Anion Gap 6.0, BUN 26 H, Creatinine 1.20 H, Estimated Creat Clear 55, Estimated GFR 44 L, Est GFR ( Amer) 53 L, Glucose 92, Calcium 8.5 I & O for Labs for Last 24 Hours: Intake & Output 03/05/25 03/06/25 03/07/25 03/08/25 23:59 23:59 23:59 23:59 Intake Total 590 / 590 1200 / 1200 595 / 595 Output Total 950 / 1350 900 / 900 0 / 0 0 / 0 Balance -360 / -760 300 / 300 595 / 595 0 / 0 Weight 179 lb 9.6 oz 183 lb 4 oz 184 lb 182 lb Intake & Output 03/04/25 03/05/25 03/06/25 03/07/25 23:59 23:59 23:59 23:59 Intake Total 1050 / 1050 590 / 590 1200 / 1200 120 / 120 Output Total 1550 / 1550 950 / 1350 900 / 900 Balance -500 / -500 -360 / -760 300 / 300 120 / 120 Weight 181 lb 7 oz 179 lb 9.6 oz 183 lb 4 oz 184 lb Microbiology Reports for the Last 24 Hours: Microbiology 03/05/25 11:30 Sputum - Expectorated Sputum Gram Stain - Final 03/05/25 11:30 Sputum - Expectorated Sputum Sputum Culture - Preliminary Gram Positive Cocci 03/04/25 05:05 Blood Blood Culture - Preliminary NO GROWTH AFTER 4 DAYS 03/04/25 05:05 Blood Blood Culture - Preliminary NO GROWTH AFTER 4 DAYS Microbiology 03/05/25 11:30 Sputum - Expectorated Sputum Gram Stain - Final 03/05/25 11:30 Sputum - Expectorated Sputum Sputum Culture - Preliminary Constitutional: Present mild distress Head: Present normocephalic and atraumatic ENT: Present normal exam, normal oropharynx and mucous membranes moist Neck: Present normal inspection and full ROM Respiratory: Present normal respiratory effort and able to speak in complete sentences; Absent respiratory distress or wheezes Cardiac: Present S1/S2, Tachycardia and radial pulses present GI: Present soft and distention; Absent tenderness or guarding Rectal (female): Present deferred (female): Present deferred Skin: Present intact; Absent cyanosis or jaundice Neuro: Present alert, awake and oriented x 3 Extremities: Present normal inspection; Absent clubbing or cyanosis Psychiatric: Present normal affect and cooperative Assessment and Plan *Assessment and plan (1) Respiratory failure with hypoxia and hypercapnia: Status: Acute Qualifiers: Chronicity: acute on chronic Qualified Code(s): J96.21 - Acute and chronic respiratory failure with hypoxia; J96.22 - Acute and chronic respiratory failure with hypercapnia Category: Medical Code(s): J96.91 - Respiratory failure, unspecified with hypoxia; J96.92 - Respiratory failure, unspecified with hypercapnia (2) Pneumonia: Status: Acute Category: Medical Code(s): J18.9 - Pneumonia, unspecified organism Plan Ms. Moran is a 74-year-old female greater than [id number] smoking used to smoke 2 packs a day stopped smoking around 2013, history of COPD and asthma recurrent bronchitis hypothyroidism chronic hypoxic respiratory failure presented with worsening respiratory distress increasing oxygen requirements and pulmonary was called for further evaluation and management. Neutrophilic predominant leukocytosis upon admission improving. Blood gas upon admission mild hypercarbic respiratory failure. No hypoxia noted with a PaO2 of 62.9 on VBG. Comprehensive respiratory viral PCR panel negative. CT chest upon admission prominent right-sided airspace disease, right upper lobe and lower lobe patchy infiltrates. CT chest from June also showed prominent right-sided minimal patchy infiltrates. Also lymphadenopathy noted. No recent prior sputum cultures. Currently receiving levofloxacin. on examination minimal respiratory distress. No significant wheezing. Prelim sputum cultures gram-positive cocci few No acute respiratory events overnight. Initial blood gas mild hypercarbia. Has not been using noninvasive ventilator therapy since admission. Blood gas from yesterday and this morning continued to show mild hypercarbic respiratory failure which is 7.37 and 57.1. No need for noninvasive ventilator therapy upon discharge but will follow as an outpatient basis. Plan: Continue oxygen supplementation on as-needed basis to maintain O2 saturation goal 90% and above Continue Trelegy 100 inhaler along with DuoNebs 4 times daily as needed Continue levofloxacin for a total of 5 days Incentive spirometry and flutter valve Follow-up sputum sample for AFB culture sensitivity sample obtained during her hospital stay Further concerning recurrent right sided infiltrates/recurrent pneumonia in setting of known risk for aspiration will consider bronchoscopy airway examination as an outpatient basis.
--- NOTE | 2025-03-08 11:45 | P.DS_ITS ---
General Admission date:: 03/04/25 HPI HPI HPI: HCO3 31.1,This is a 74-year-old female who has a past medical history significant for COPD, asthma, bronchitis, [place], (has no cardiac stents), hypothyroidism, and home O2 at 2-3 L who presents with a chief complaint of shortness of air. Due to patient's symptoms, EMS presented to patient's home residence where she was noted to have oxygen saturations on her home O2 regimen of 60%. Per EMS, patient was obtunded. She was transition to Psychiatric and given multiple nebulized treatments. Plain films of the chest revealed stable cardiomegaly and right basilar airspace opacity atelectasis versus aspiration or infiltrate. As a result, patient is being admitted for further management. During my evaluation of the patient, patient states that her symptoms started approximately 1-2 days ago and progressively got worse. Patient states she has had a nonproductive cough and wheezing noted. Family member noted that patient started to become lethargic and that is the reason why they called EMS. On further questioning, patient states she uses Trelegy inhaler and albuterol. Spouse and patient voices purchasing a commercial oxygen device that is portable. They do not believe that device is adequate for her. They would like to see if patient qualifies for supplemental oxygen upon discharge. Patient states she had a home nebulizer in the past but did not like the device and no longer uses it. She is currently denying any chest pain, lightheadedness, hematochezia, hematemesis, hematuria, melena stool, dizziness, fever, chills, rigors, nausea, vomiting, or diarrhea. Patient states she cannot tolerate laying flat. Additional pertinent vitals obtained including white blood cell count of 22.4, red blood cell count of 4.09, hemoglobin 9.3, hematocrit 33.5, neutrophils 85.4%, pCO2 61.9, sodium 134, carbon oxide 34, GFR 54, blood glucose 127, AST of 39, and BNP of 3160. Hospital Course Hospital Course Hospital Course: Ms. Mendoza 74-year-old female found to have right lower lobe pneumonia on CT imaging of chest. Evaluated by speech therapy on 03/04, with no concern for aspiration on bedside evaluation. Location of pneumonia and recurrence however concerning for aspiration component. Blood cultures no growth to date, sputum culture pending. PSI port score of 93 on admission. Right lower lobe bacterial pneumonia Acute on chronic hypoxic and hypercapnic respiratory failure COPD exacerbation OHS/BMI 36 ? Clinically improved with IV antibiotics, breathing treatments. Patient feels much improved, breathing easier. Pulmonology consulted, did not recommend steroids or BiPAP. ? Continue chronic 1.5 L nasal cannula. ? Discharged with levofloxacin 750 mg daily for 1 more day. Continue home Trelegy 100. Hypothyroid ? Continue home levothyroxine 75 mcg. GERD Aspiration precautions Appropriate positioning before and after mealtimes PPI therapy Chronic pain syndrome Chronically prescribed opioid therapy ?Continue home [place]. Total time spent on discharge: 32 minutes on chart review, counseling, documentation, and direct care with patient. Exam Data for Last 24 hours Vital signs and Labs for Last 24 Hours: Temp Pulse Resp BP Pulse Ox O2 Del Method O2 Flow Rate 98.8 F 85 16 148/74 H 94 L Nasal Cannula 1.5 03/08/25 07:32 03/08/25 07:32 03/08/25 07:32 03/08/25 07:32 03/08/25 07:32 03/08/25 11:20 03/08/25 11:20 Laboratory Results - last 24 hr 03/05/25 20:30: POC Glucose 175 H 03/06/25 06:11: POC Glucose 120 H 03/07/25 11:47: POC Glucose 105 03/07/25 14:40: Specimen Source Right radial, O2 % Ra, ABG pH 7.35, ABG pCO2 57.4 H, ABG pO2 53.1 L, ABG HCO3 30.9 H, ABG Total CO2 32.7 H, ABG O2 Saturation 87 L*, ABG Base Excess 5.3 H, Jan Test Acceptable 03/07/25 16:14: POC Glucose 114 H 03/08/25 05:31: WBC 9.0, RBC 3.86 L, Hgb 8.5 L, Hct 31.7 L, MCV 82.1, MCH 22.0 L , MCHC 26.8 L, RDW 18.3 H, Plt Count 212, MPV 8.8, Neut % (Auto) 75.6, Lymph % (Auto) 7.1 L, [place] % (Auto) 13.1 H, Eos % (Auto) 1.9, Baso % (Auto) 0.2, Neut # (Auto) 6.8, Lymph # (Auto) 0.6 L, [place] # (Auto) 1.2 H, Eos # (Auto) 0.2, Baso # (Auto) 0.0, Sodium 136, Potassium 4.0, Chloride 100, Carbon Dioxide 33 H, Anion Gap 7.0, BUN 21 H, Creatinine 1.20 H, Estimated Creat Clear 54, Estimated GFR 44 L, Est GFR ( Amer) 53 L, Glucose 94, Calcium 8.8 03/08/25 06:00: Specimen Source R radial, O2 % 1lpm, ABG pH 7.37, ABG pCO2 57.1 H, ABG pO2 73.9 L, ABG HCO3 32.5 H, ABG Total CO2 34.2 H, ABG O2 Saturation 94, ABG Base Excess 7.3 H, Jan Test Acceptable I & O for Last 24 hours: Intake & Output 03/05/25 03/06/25 03/07/25 03/08/25 23:59 23:59 23:59 23:59 Intake Total 590 / 590 1200 / 1200 595 / 595 300 / 300 Output Total 950 / 1350 900 / 900 0 / 0 0 / 0 Balance -360 / -760 300 / 300 595 / 595 300 / 300 Weight 81.465 kg 83.121 kg 83.461 kg 82.554 kg Microbiology Reports for the Last 24 Hours: Microbiology 03/05/25 11:30 Sputum - Expectorated Sputum Gram Stain - Final 03/05/25 11:30 Sputum - Expectorated Sputum Sputum Culture - Preliminary Gram Positive Cocci 03/04/25 05:05 Blood Blood Culture - Preliminary NO GROWTH AFTER 4 DAYS 03/04/25 05:05 Blood Blood Culture - Preliminary NO GROWTH AFTER 4 DAYS Constitutional Constitutional: no acute distress, obese and chronically ill appearing *Routine HEENT Exam Head: Present normocephalic Eye: Present EOMI and PERRL ENT: Present mucous membranes moist *Routine Neck Exam Neck: Present supple; Absent lymphadenopathy *Routine Respiratory Exam Respiratory: Present CTA bilaterally *Routine Cardiovascular Exam Cardiovascular: Present RRR *Routine Abdominal Exam Abdominal: Present soft and normoactive bowel sounds; Absent tenderness *Routine Extremities Exam Extremities: Absent cyanosis, clubbing or edema *Routine Skin Exam Skin: Present warm; Absent rash *Routine Neurological Exam Neurological: Present alert and oriented X3 Results Data Completed and Pending Labs on day of discharge: Labs from last 24 hours 03/08/25 03/08/25 03/07/25 06:00 05:31 16:14 WBC 9.0 RBC 3.86 L Hgb 8.5 L Hct 31.7 L MCV 82.1 MCH 22.0 L MCHC 26.8 L RDW 18.3 H Plt Count 212 MPV 8.8 Neut % (Auto) 75.6 Lymph % (Auto) 7.1 L [place] % (Auto) 13.1 H Eos % (Auto) 1.9 Baso % (Auto) 0.2 Neut # (Auto) 6.8 Lymph # (Auto) 0.6 L [place] # (Auto) 1.2 H Eos # (Auto) 0.2 Baso # (Auto) 0.0 Specimen Source R radial O2 % 1lpm ABG pH 7.37 ABG pCO2 57.1 H ABG pO2 73.9 L ABG HCO3 32.5 H ABG Total CO2 34.2 H ABG O2 Saturation 94 ABG Base Excess 7.3 H Jan Test Acceptable Sodium 136 Potassium 4.0 Chloride 100 Carbon Dioxide 33 H Anion Gap 7.0 BUN 21 H Creatinine 1.20 H Estimated Creat Clear 54 Estimated GFR 44 L Est GFR ( Amer) 53 L Glucose 94 POC Glucose 114 H Calcium 8.8 03/07/25 03/07/25 03/06/25 14:40 11:47 06:11 WBC RBC Hgb Hct MCV MCH MCHC RDW Plt Count MPV Neut % (Auto) Lymph % (Auto) [place] % (Auto) Eos % (Auto) Baso % (Auto) Neut # (Auto) Lymph # (Auto) [place] # (Auto) Eos # (Auto) Baso # (Auto) Specimen Source Right radial O2 % Ra ABG pH 7.35 ABG pCO2 57.4 H ABG pO2 53.1 L ABG HCO3 30.9 H ABG Total CO2 32.7 H ABG O2 Saturation 87 L* ABG Base Excess 5.3 H Jan Test Acceptable Sodium Potassium Chloride Carbon Dioxide Anion Gap BUN Creatinine Estimated Creat Clear Estimated GFR Est GFR ( Amer) Glucose POC Glucose 105 120 H Calcium 03/05/25 20:30 WBC RBC Hgb Hct MCV MCH MCHC RDW Plt Count MPV Neut % (Auto) Lymph % (Auto) [place] % (Auto) Eos % (Auto) Baso % (Auto) Neut # (Auto) Lymph # (Auto) [place] # (Auto) Eos # (Auto) Baso # (Auto) Specimen Source O2 % ABG pH ABG pCO2 ABG pO2 ABG HCO3 ABG Total CO2 ABG O2 Saturation ABG Base Excess Jan Test Sodium Potassium Chloride Carbon Dioxide Anion Gap BUN Creatinine Estimated Creat Clear Estimated GFR Est GFR ( Amer) Glucose POC Glucose 175 H Calcium Preliminary micro results at discharge 03/05/25 11:30 Sputum Culture - Preliminary Sputum - Expectorated Sputum Gram Positive Cocci 03/04/25 05:05 Blood Culture - Preliminary Blood NO GROWTH AFTER 4 DAYS 03/04/25 05:05 Blood Culture - Preliminary Blood NO GROWTH AFTER 4 DAYS DS: Diagnosis Discharge Diagnosis (1) Respiratory failure with hypoxia and hypercapnia: Status: Acute Code(s): J96.91 - Respiratory failure, unspecified with hypoxia; J96.92 - Respiratory failure, unspecified with hypercapnia Qualifiers: Chronicity: acute on chronic Qualified Code(s): J96.21 - Acute and chronic respiratory failure with hypoxia; J96.22 - Acute and chronic respiratory failure with hypercapnia (2) Pneumonia: Status: Acute Code(s): J18.9 - Pneumonia, unspecified organism Meds Home Medications and Allergies Home Medications ?Medication ?Instructions ?Recorded ?Confirmed ?Type albuterol sulfate 90 mcg/actuation 2 puff inhalation Q 6HP PRN 03/04/25 03/04/25 History aerosol inhaler Shortness Of Breath bisoprolol fumarate 5 mg tablet 5 mg PO DAILY 03/04/25 03/04/25 History celecoxib 200 mg capsule 200 mg PO BID 03/04/2503/04 History fluticasone fur. 100 mcg-umeclid 1 inh inhalation CLAY Y 03/04/25 03/04/25 History 62.5 mcg-vilant 25 mcg inhalat.powder (Trelegy Ellipta) gabapentin 600 mg tablet 600 mg PO QID 03/04/2503/04 History levothyroxine 75 mcg tablet 75 mcg PO DAILY 03/04/25 1 History oxycodone-acetaminophen 10 mg-325 1 tab PO Q6HP PRN Mo derate Pain 03/04/25 03/04/25 History mg tablet (Scale Score 5-6) pantoprazole 40 mg tablet,delayed 40 mg PO BID 5 03/04/25 History release levofloxacin 750 mg tablet 750 mg PO 1100 1 day #1 tab 03/08/25 Rx New Prescriptions to Start Prescriptions: levofloxacin Ramo Zapata Allergies Allergy/AdvReac Type Severity Reaction Status Date / Time Penicillins Allergy Unknown Verified 07/06/24 14:12 allergy reaction Discharge Plan Disposition Patient Disposition: Home, Self-Care Condition: Fair Discharge Order Discharge Orders: Discharge Order (Routine); Ordered 03/08/25 Ordered By: Ramo Zapata Follow up Plan Follow up with: Ubaldo Irene [Primary Care Provider, Medical] - 03/09/25 10:40 am Gibson Pantoja MD [Physician, Pulmonology] - 03/17/25 11:40 am Prescriptions/Medication Reconciliation: New levofloxacin 750 mg Tablet 750 mg PO 1100 1 Days Qty: 1 0RF Continued celecoxib 200 mg capsule 200 mg PO BID Patient Comments: TAKE 1 CAPSULE BY MOUTH 2 TIMES DAILY FOR 180 DAYS. gabapentin 600 mg tablet 600 mg PO QID Patient Comments: TAKE 1 TABLET BY MOUTH 4 TIMES DAILY. levothyroxine 75 mcg tablet 75 mcg PO DAILY Patient Comments: TAKE 1 TABLET BY MOUTH DAILY. oxycodone-acetaminophen 10-325 mg tablet 1 tab PO Q6HP PRN (Reason: Moderate Pain (Scale Score 5-6)) Patient Comments: TAKE 1 TABLET BY MOUTH EVERY 6 HOURS NEEDED FOR CHRONIC PAIN. pantoprazole 40 mg tablet,delayed release (DR/EC) 40 mg PO BID Patient Comments: TAKE 1 TABLET BY MOUTH 2 TIMES DAILY FOR 30 DAYS. albuterol sulfate 90 mcg/actuation HFA aerosol inhaler 2 puff INHALATION Q6HP PRN (Reason: Shortness Of Breath) Patient Comments: INHALE 2 PUFFS INTO THE LUNGS EVERY 6 HOURS NEEDED FOR WHEEZING. Trelegy Ellipta 100-62.5-25 mcg blister with device 1 inh INHALATION DAILY Patient Comments: INHALE 1 PUFF INTO THE LUNGS DAILY AT 9:00 AM bisoprolol fumarate 5 mg tablet 5 mg PO DAILY Patient Comments: TAKE 1 TABLET BY MOUTH DAILY. Problem Reconciliation Problems Reviewed?: Yes Patient Discharge Instructions Patient Instructions: Heart Failure, Heart-Healthy Diet, DI for Chronic Obstructive Pulmonary Disease, Stop Light Pneumonia, Stop Light COPD, Stop Light Heart Failure Print Language: Moroccan Providers Primary Care Provider: Ubaldo Irene Admsasha Provider: Ramo Zapata Attending Provider: Ramo Zapata
[2025-03-08 11:50] VITALS: PULSE 85; O2SAT 94
[2025-03-08 12:39] LABS: Thyroid Stimulating Hormone 2.20 uIU/mL (0.465-4.68)
--- NOTE | 2025-03-08 19:21 | PC.NURSE ---
I texted with doctor jorge on 03/07/25 about patients bipap status and he did not want her on because vbg didnt indicate a need for it.
--- NOTE | 2025-03-09 10:19 | SW/DCPLANNER ---
Spoke with patient on the phone. Patient stated that she is aware of her upcoming appointments. Patient stated that once she gets back from her PCP appointment she will get her new medicine picked up. Patient stated that she has no concerns or questions at this time. Brad Saenz
== END 2025-03-08 13:27 | disposition home or self-care (01) | DRG 177 ==
LOC: ER 06:10 → 2ND 06:35
PROVIDERS: Family Medicine; Internal Medicine Adolescent Medicine; Nurse Practitioner Family; Admitting Provider Student in an Organized Health Care Education/Training Program; Emergency Provider Emergency Medicine; PCP Pediatrics; Visit Provider Student in an Organized Health Care Education/Training Program
DX: J15.211 Pneumonia due to Methicillin susceptible Staphylococcus aureus (principal); J96.21 Acute and chronic respiratory failure with hypoxia; J96.22 Acute and chronic respiratory failure with hypercapnia; J44.1 Chronic obstructive pulmonary disease with (acute) exacerbation; I50.32 Chronic diastolic (congestive) heart failure; E66.2 Morbid (severe) obesity with alveolar hypoventilation; J44.0 Chronic obstructive pulmonary disease with (acute) lower respiratory infection; I11.0 Hypertensive heart disease with heart failure; E03.9 Hypothyroidism, unspecified; D50.9 Iron deficiency anemia, unspecified; E53.8 Deficiency of other specified B group vitamins; K21.9 Gastro-esophageal reflux disease without esophagitis; G89.4 Chronic pain syndrome; T38.0X5A Adverse effect of glucocorticoids and synthetic analogues, initial encounter; R73.9 Hyperglycemia, unspecified; R79.89 Other specified abnormal findings of blood chemistry; I25.2 Old myocardial infarction; Z68.35 Body mass index [BMI] 35.0-35.9, adult; Z91.199 Patient's noncompliance with other medical treatment and regimen due to unspecified reason; Z87.891 Personal history of nicotine dependence; Z79.891 Long term (current) use of opiate analgesic; Z88.0 Allergy status to penicillin; Z79.890 Hormone replacement therapy; Z79.899 Other long term (current) drug therapy
CPT/HCPCS: 0223U; 36415; 36600; 71045; 71260; 80048; 80053; 82607; 82728; 82746; 82803; 82962; 83036; 83540; 83550; 83735; 83880; 84443; 84484; 85007; 85025; 85044; 85610; 86803; 87040; 87070; 87077; 87101; 87116; 87186; 87205; 87389; 89220; 92610; 93005; 93306; 94640; 94761; 97162; 97166; 97530; 99285; J1650; J1756; J1938; J1956; J2919; J3420; J3475; Q9967